=== PATIENT | female | born 1975 | race Caucasian/White ===

== ENCOUNTER 2024-08-02 12:18 | Emergency (ER) | payer OTHER, SELFPAY ==
[2024-08-02 12:26] VITALS: BP 104/74; PULSE 78; RESP 16; TEMP 36.6; O2SAT 100
--- OUTSIDE RECORDS SUMMARY | 2024-08-02 12:26 | XMS_ITS | Clinical Summary ---
Author Organization [facility] Address [address] [place] [address] Care Team Providers Care Strategic Partnership Representative Name Role Phone Alf Marie MD Primary Care Provider Nahed Mckay DPM Unavailable [phone] Aida Medina MD Unavailable Allergies Active Allergy Reactions Criticality Noted Date Comments Caffeine Hives Medium 12/01/2016 Codeine Other (See comments) Low 12/01/2016 Cyclobenzaprine Nausea only Low Venlafaxine Hives Medium 01/09/2023 Gabapentin Hives Medium Naproxen Hives Medium 12/01/2016 Oljzblru-Kamhiseufe-Pyewql kimberly Nausea & Vomiting Low Stomach pains Omeprazole Hives Medium 01/09/2023 Sulfamethoxazole-Trimethop rim Nausea & Vomiting Low Acetaminophen Chest tightness Medium 03/28/2022 Medications hydrOXYzine (VISTARIL) 25 mg capsule Take 1 capsule (25 mg total) by mouth 3 (three) times a day as needed 09/04/19 21 Active traZODone (DESYREL) 50 mg tablet Take 1 tablet (50 mg total) by mouth nightly as needed 09/04/19 21 Active ergocalciferol (VITAMIN D) 50,000 unit capsule Take 1 capsule (50,000 Units total) by mouth once a week 07/01/19 23 Active baclofen (LIORESAL) 10 mg tablet 07/01/19 23 Active dicyclomine (BENTYL) 20 mg tablet Take 1 tablet (20 mg total) by mouth 2 (two) times a day 20 tablet 09/18/19 23 Active polyethylene glycol (MIRALAX) 17 gram packet Take 1 packet (17 g total) by mouth daily 30 packet 09/18/19 23 Active hydrocortisone 2.5 % cream Apply topically 2 (two) times a day 30 g 12/04/19 23 Active rosuvastatin (CRESTOR) 10 mg tablet Take 1 tablet (10 mg total) by mouth daily 06/22/19 24 Active zonisamide (ZONEGRAN) 100 mg capsule TAKE FOUR (4) CAPSULES (400 MG TOTAL) BY MOUTH NIGHTLY 120 capsule 11 07/13/19 24 Active citalopram (CeleXA) 40 mg tablet 09/04/19 24 Active FeroSuL 325 mg (65 mg iron) tablet 08/22/19 24 Active lidocaine (XYLOCAINE) 5 % ointment 07/13/[address] (PROTONIX) 20 mg EC tablet 08/22/19 24 Active busPIRone (BUSPAR) 15 mg tablet 09/04/19 24 Active promethazine-D M (PROMETHAZINE- DM) 1.25-3 mg/mL syrup 06/19/19 24 Active ondansetron (ZOFRAN) 8 mg tablet 08/22/19 24 Active topiramate 200 mg capsule,extend ed release 24hr Take 1 capsule (200 mg total) by mouth 2 (two) times a day 60 capsule 3 03/21/20 24 Active midazolam (Nayzilam) 5 mg/spray (0.1 mL) spray,non-aero luis spray units ADMINISTER 1 SPRAY INTO 1 NOSTRIL WA BREAKTHROUGH SEIZURES USE ALTERNATIVE NOSTRIL IF 2ND SPRAY IS NEEDED 10 each 3 04/21/19 25 Active carBAMazepine (TEGretol) 100 mg chewable tablet TAKE THREE (3) TABLETS (300 MG TOTAL) BY MOUTH TWO (2) (TWO) TIMES a DAY WITH LUNCH AND DINNER 180 tablet 3 07/04/19 25 Active rimegepant (NURTEC ODT) tablet,disinte grating Take 1 tablet (75 mg total) by mouth as needed (As needed for Migraine) 10 tablet 07/11/19 25 Active SUMAtriptan (IMITREX) 100 mg tablet TAKE 1 TABLET (100 MG TOTAL) BY MOUTH ONCE NEEDED FOR MIGRAINE 9 tablet 5 05/07/19 25 025 Discontinued Hospital, Clinic, or Other Facility Administered Medication Ordered Dose Route Frequency Start Date End Date Status onabotulinumtoxin A (BOTOX) 200 unit injection 200 UnitsIndications:Chronic migraine without aura without status migrainosus, not intractable 200 Units OTHER Once 07/10/2024 07/10/2024 Ended Active Problems Problem Noted Date Diagnosed Date VENITA (obstructive sleep apnea) 07/19/2023 Right leg numbness 06/09/2023 Normocytic anemia 06/09/2023 Weakness 06/09/2023 Migraine 06/09/2023 Headache 06/09/2023 Difficult intravenous access 06/09/2023 Transient ischemic attack (TIA) 06/09/2023 Seizures 05/31/2023 Partial paralysis of left hand 05/31/2023 Overview (05/31/2023): l leg and l arm weakness/ patient reported paralysis since Anemia due to folic acid deficiency 05/31/2023 Insomnia 05/31/2023 Acute viral syndrome 04/01/2023 Upper respiratory tract infection 04/01/2023 Urticaria 11/11/2022 Acquired external rotation of foot, right 2022 Plantar fascial fibromatosis 08/29/2022 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 The she is Elavil BuSpar Lexapro. Will continue home antidepressants. Will start on suicide precautions. The will consult the psychiatric and school social worker for discharge planning. The due to severety of the symptoms patient would benefit from inpatient psychiatric stabilization after medically cleared. Vertigo 04/28/2019 Chin laceration 08/29/2017 Immunization, tetanus-diphtheria 08/29/2017 Pain of foot 08/24/2015 Seizure disorder 04/26/2015 Overview (07/13/2016): Seizure disorder Assessment & Plan (08/28/2020 11:31 PM CDT): Continue Tegretol Ativan p.r.n. for breakthrough seizure. Partial epilepsy with impairment of consciousnes s 02/19/2015 Overview (07/13/2016): Partial symptomatic epilepsy with complex partial seizures, intractable, without status epilepticus Common migraine with intractable migraine 2014 Overview (07/13/2016): Intractable chronic migraine without aura and without status migrainosus Pain in female pelvis 07/03/2014 Mass of breast 03/18/2014 Cerebral palsy 10/27/2011 Assessment & Plan (08/28/2020 11:30 PM CDT): At baseline. Continue monitoring 09/19/2011 Resolved Problems Problem Noted Date Diagnosed Date Resolved Date Acute cystitis without hematuria 05/31/2023 05/31/2023 BENITEZ (acute kidney injury) 08/28/2020 Assessment & Plan (08/28/2020 11:33 PM CDT): Acute renal failure likely secondary to nephrotoxicity due to NSAIDs. Will continue IV fluids, monitoring closely. Repeat BMP in a.m.. Monitor strict I&Os. Telemetry monitoring. Symptomatic treatment for nausea with Zofran p.r.n.. Encounters Date Type Department Care Team Description 07/10/2024 11:00 AM CDT Procedure visit [facility] [address] [facility] [address] [place] [address] Aida Medina MD Chronic migraine without aura without status migrainosus, not intractable 07/10/2024 Telephone [facility] [address] [facility] [address] [place] [address] Bharati Gil MA 06/25/2024 Telephone [facility] [address] [place] [address] Jenelle Conway 06/17/2024 Telephone [facility] [address] [place] [address] [address] [place] [address] Aida Medina MD 06/09/2024 Orders Only [facility] [address] [place] [address] [address] [place] [address] Aida Medina MD Chronic migraine without aura without status migrainosus, not intractable (Primary Dx) 05/26/2024 Telephone [facility] at [address] [place] [address] Michelle Hurst CMA 05/26/2024 Results Follow-Up [facility] [address] [place] [address] Dylan Newton 05/23/2024 12:35 PM ELECTRIC METER REPAIRER APPRENTICE Lab [facility] [address] [place] [address] Partial epilepsy with impairment of consciousness (HCC); Chronic migraine without aura without status migrainosus, not intractable 05/23/2024 11:30 AM ELECTRIC METER REPAIRER APPRENTICE Office Visit [facility] [address] [place] [address] [address] [place] [address] Aida Medina MD Partial epilepsy with impairment of consciousness (HCC) (Primary Dx); Chronic migraine without aura without status migrainosus, not intractable; VENITA (obstructive sleep apnea) from Last 3 Months Immunizations Immunization Administration Dates Next Due Influenza, Quadrivalent, Spl it, Preservative Free, Intramuscular 06/02/2023 Tdap 08/29/2017 Surgical History Surgery Date Site/Laterality Comments TUBAL LIGATION tubal ligation VAGUS NERVE STIMULATOR INSERTION Left battery replaced in Feb 2020 Medical History Medical History Date Comments Hx Other Medical Headache, migra ine Seizure disorder (HCC) Seizure d isorder Hx Other Medical Thromboembolic Event Migraine Sleep apnea Heart murmur Transient paralysis of limb l le g and l arm weakness/ patient reported paralysis since Family History Medical History Relation Name Comments Glaucoma Father Hypertension Father Hypertension; Bladder Cancer Mother Cancer Mother Diabetes type II Mother Diabetes me llitus type 2; Headache Mother Headaches; Brain cancer Mother's Sister Lung cancer Mother's Sister Hypertension Other Hypertension; Heart disease Paternal Grandmother Relation Name Status Comments Father Mother Mother's Sister Other Paternal Grandmother Social History Tobacco Use Types Packs/Day Years Used Date Smoking Tobacco: Never Passive Smoke Exposure: Never Smokeless Tobacco: Never Tobacco Cessation:Counseling Given: Not Answered Alcohol Use Standard Drinks/Week Comments No 0 (1 standard drink = 0.6 oz pur e alcohol) [facility] Utilities Answer Date Recorded In the past 12 months has th e electric, gas, oil, or water company threatened to shut off services in your home? No 06/11/2023 Social Connection and Isolat ion Panel [NHANES] Answer Date Recorded In a typical week, how many times do you talk on the phone with family, friends, or neighbors? More than three times a week 06/11/2023 How often do you get togethe r with friends or relatives? More than three times a week 06/11/2023 How often do you attend chur ch or religion services? Never 06/11/2023 Do you belong to any clubs o r organizations such as religious groups, unions, fraternal or athletic groups, or school groups? No 06/11/2023 How often do you attend meet ings of the clubs or organizations you belong to? Never 06/11/2023 Are you , , di vorced, , never , or living with a partner? 06/11/2023 AUDIT-C Answer Date Recorded Frequency of Alcohol Consumption Not on file 09/15/2022 Q2: How many drinks containi ng alcohol do you have on a typical day when you are drinking? Patient does not drink Frequency of Binge Drinking Not on file 12/2022 Overall Financial Resource Strain (CARDIA) Answe r Date Recorded How hard is it for you to pa y for the very basics like food, housing, medical care, and heating? Not hard at all 06/11/2023 PHQ-2 Answer Date Recorded PHQ-2 Total Score (If total score is 3 or more points, staff should administer the PHQ-9) 4 08/30/2020 Hunger Vital Sign Answer Date Recorded Within the past 12 months, y ou worried that your food would run out before you got the money to buy more. Never true 06/11/19 24 Within the past 12 months, t he food you bought just didn't last and you didn't have money to get more. Never true 06/11/2023 PRAPARE - Transportation Answer Date Re corded In the past 12 months, has l ack of transportation kept you from medical appointments or from getting medications? No 07/2023 In the past 12 months, has l ack of transportation kept you from meetings, work, or from getting things needed for daily living? No 06/11/2023 Housing Stability Vital Sign Answer Bao e Recorded In the last 12 months, was t here a time when you were not able to pay the mortgage or rent on time? No 06/11/2023 In the last 12 months, how many places have you lived? 1 06/11/2023 In the last 12 months, was t here a time when you did not have a steady place to sleep or slept in a mcfp (including now)? No 06/11/2023 Personal Safety Answer Date Recorded Have you ever been in or are you currently in a harmful physical or emotional relationship or is someone making you feel afraid or unsafe? Denies 06/09/2023 Comments No Sex and Gender Information Value Date Recorded Sex Assigned at Not on file Legal Sex Female 3:21 AM ELECTRIC METER REPAIRER APPRENTICE Gender Identity Not on file Sexual Orientation Not on file Obstetrics History Last Filed Vital Signs Vital Sign Reading Time Taken Comments Blood Pressure 106/71 07/10/2024 10:40 AM CDT Pulse 67 07/10/2024 10:40 AM CDT Temperature 36.2 C (97.1 F) 06/12/2023 7:42 AM ELECTRIC METER REPAIRER APPRENTICE Respiratory Rate 18 12/17/2023 11:31 AM CDT Oxygen Saturation 97% 07/10/2024 10:40 AM CDT Inhaled Oxygen Concentration - - Weight 47.2 kg (104 lb) 07/10/2024 10:40 AM CDT Height 149.9 cm (4' 11.02 ) 07/10/2024 10:40 AM CDT Body Mass Index 20.99 07/10/2024 10:40 AM CDT Plan of Treatment Health Maintenance Due Date Last Done Comments Cervical Cancer Screening 1975 Colon Cancer Screening-Colonoscopy 1975 Hepatitis C Screening 1975 Hepatitis B Screening 10/02/1993 Regular Well Visit/Exam 18-64 10/02/1993 Breast Cancer Screening-Mammogram 05/11/2017 05/11/2016, 04/21/2015, 08/29/2013 Depression Screening 08/28/2021 08/28/2020, 04/27/19 20 DTaP/Tdap/Td Vaccine (2 - Td or Tdap) 08/30/2027 08/29/2017 Pneumococcal vaccine <65 Aged Out 03/02/2017 No longer eligible based on patient's age to complete this topic Influenza Vaccine Completed 12/24/2023, , 01/12/2022, Additional history exists Medical Devices Implanted Type Area Pneumatic Tool Repairer Device Identifier Shelf Expiration Date Model / Serial / Lot Vagus Nerve Stimulator Vagus Nerve Stimulator Left: Chest Description:cyberonics brand Procedures Procedure Name Priority Date/Time Associated Diagnosis Comments EGFR Routine 05/23/2024 1:02 PM ELECTRIC METER REPAIRER APPRENTICE Partial epilepsy with impairment of consciousness (HCC) Chronic migraine without aura without status migrainosus, not intractable DIFFERENTIAL AUTO Routine 05/23/2024 1:0 2 PM ELECTRIC METER REPAIRER APPRENTICE Partial epilepsy with impairment of consciousness (HCC) Chronic migraine without aura without status migrainosus, not intractable CBC WITH AUTO DIFFERENTIAL Routine 05/23/2024 1:02 PM ELECTRIC METER REPAIRER APPRENTICE Partial epilepsy with impairment of consciousness (HCC) Chronic migraine without aura without status migrainosus, not intractable COMPREHENSIVE METABOLIC PANEL Routine 05/23/2024 1:02 PM ELECTRIC METER REPAIRER APPRENTICE Partial epilepsy with impairment of consciousness (HCC) Chronic migraine without aura without status migrainosus, not intractable CARBAMAZEPINE LEVEL, TOTAL Routine 05/23/2024 1:02 PM ELECTRIC METER REPAIRER APPRENTICE Partial epilepsy with impairment of consciousness (HCC) Chronic migraine without aura without status migrainosus, not intractable BLOOD MISC TO PLEASANT GROVE Routine 05/23/2024 12 :41 PM ELECTRIC METER REPAIRER APPRENTICE URINALYSIS, MICROSCOPIC ONLY Routine 05/23/2024 12:41 PM ELECTRIC METER REPAIRER APPRENTICE Partial epilepsy with impairment of consciousness (HCC) Chronic migraine without aura without status migrainosus, not intractable TOPIRAMATE LEVEL Routine 05/23/2024 12:4 1 PM ELECTRIC METER REPAIRER APPRENTICE Partial epilepsy with impairment of consciousness (HCC) Chronic migraine without aura without status migrainosus, not intractable URINE CULTURE Routine 05/23/2024 12:41 PM ELECTRIC METER REPAIRER APPRENTICE URINALYSIS AND REFLEX TO MICROSCOPIC AND CULTURE Routine 05/23/2024 12:41 PM ELECTRIC METER REPAIRER APPRENTICE Partial epilepsy with impairment of consciousness (HCC) Chronic migraine without aura without status migrainosus, not intractable SCREENING MAMMOGRAM Routine 05/11/2016 1 :46 PM ELECTRIC METER REPAIRER APPRENTICE from Last 3 Months or Most Recently Relevant to Health Maintenance Results * eGFR (05/23/2024 1:02 PM ELECTRIC METER REPAIRER APPRENTICE) eGFR >90 >=60 mL/min/1. 73 m2 Comment: Interpretive Data Reference Interval Normal >/= 90 mL/min/1.73m2 Mildly decreased* 60 - 89 mL/min/1.73m2 Mildly to moderately decreased 45 - 59 mL/min/1.73m2 Moderately to severely decreased 30 - 44 mL/min/1.73m2 Severely decreased 15 - 29 mL/min/1.73m2 Kidney Failure < 15 mL/min/1.73m2 *Relative to young adult level Estimated glomerular filtration rate is determined by the 2020 CKD-EPI equation recommended by the National Kidney Foundation (A Unifying Approach to GFR Estimation: Recommendations of the NKF-ASK Task Force on Reassessing the Inclusion of Race in Diagnosing Kidney Disease, JASN 2020). The CKD-EPI equation should not be used for patients with unstable renal function and has not been validated in children and those over 70. Current interpretive data was last reviewed 2021. Blood 05/23/2024 1:02 PM ELECTRIC METER REPAIRER APPRENTICE 05/23/2024 2:00 PM ELECTRIC METER REPAIRER APPRENTICE us Aida Medina MD LAB BLOOD ORDERABLES Final Resul t [facility] [place] [address] [facility] Department [place] [address] * Differential, auto (05/23/2024 1:02 PM ELECTRIC METER REPAIRER APPRENTICE) Neutrophil abs 4.1 1.5 - 6.5 K/cumm Imm gran abs 0.0 0.0 - 0.1 K/cumm [facility] ([facility]) Lymphocyte abs 1.8 0.8 - 3.3 K/cumm [facility] ([facility]) Monocyte abs 0.3 0.2 - 0.8 K/cumm [facility] ([facility]) Eosinophil abs 0.0 0.0 - 0.5 K/cumm [facility] ([facility]) Basophil abs 0.0 0.0 - 0.1 K/cumm [facility] ([facility]) Neutrophil pct 66.1 % [facility] ([facility]) Comment: Interpretive Data Percent cell count reference ranges are not reported, since discordance with absolute values may lead to misinterpretation of CBC data. Current Interpretive Data was last revised on 2017. Imm gran pct 0.2 % [facility] ([facility]) Comment: Interpretive Data Percent cell count reference ranges are not reported, since discordance with absolute values may lead to misinterpretation of CBC data. Current Interpretive Data was last revised on 2017. Lymphocyte pct 28.8 % [facility] ([facility]) Comment: Interpretive Data Percent cell count reference ranges are not reported, since discordance with absolute values may lead to misinterpretation of CBC data. Current Interpretive Data was last revised on 2017. Monocyte pct 4.7 % [facility] ([facility]) Comment: Interpretive Data Percent cell count reference ranges are not reported, since discordance with absolute values may lead to misinterpretation of CBC data. Current Interpretive Data was last revised on 2017. Eosinophil pct 0.0 % [facility] ([facility]) Comment: Interpretive Data Percent cell count reference ranges are not reported, since discordance with absolute values may lead to misinterpretation of CBC data. Current Interpretive Data was last revised on 2017. Basophil pct 0.2 % [facility] ([facility]) Comment: Interpretive Data Percent cell count reference ranges are not reported, since discordance with absolute values may lead to misinterpretation of CBC data. Current Interpretive Data was last revised on 2017. Blood 05/23/2024 1:02 PM ELECTRIC METER REPAIRER APPRENTICE 05/23/2024 2:00 PM ELECTRIC METER REPAIRER APPRENTICE Aida Medina MD LAB BLOOD ORDERABLES Final Resul t [facility] ([facility]) [address] [facility] Department [place] [address] * (ABNORMAL) CBC with auto differential (05/23/2024 1:02 PM ELECTRIC METER REPAIRER APPRENTICE) WBC 6.1 3.8 - 9.9 K/cumm Hgb 13.9 11.9 - 15.5 g/dL [facility] ([place]) Hct 44.1 35.6 - 45.5 % [facility] ([place]) Plt 252 150 - 400 K/cumm [facility] ([place]) MPV 10.4 9.1 - 12.3 fL [facility] ([place]) RBC 4.46 3.90 - 5.20 M/cumm [facility] ([place]) MCV 98.9(H) 81.3 - 96.4 fL [facility] ([place]) MCH 31.2 27.1 - 33.3 pg [facility] ([place]) MCHC 31.5(L) 32.3 - 35.7 g/dL [facility] ([place]) RDW CV 12.8 11.1 - 14.9 % [facility] ([facility]) RDW SD 47.1 35.7 - 48.1 fL [facility] ([facility]) NRBC abs 0.00 0.00 - 0.01 K/cumm [facility] ([facility]) Blood 05/23/2024 1:02 PM ELECTRIC METER REPAIRER APPRENTICE 05/23/2024 2:00 PM ELECTRIC METER REPAIRER APPRENTICE Aida Medina MD LAB BLOOD ORDERABLES Final Resul t [facility] ([facility]) [address] [facility] Department [place] [address] * Carbamazepine level, total (05/23/2024 1:02 PM ELECTRIC METER REPAIRER APPRENTICE) Carbamazepine 6.8 4.0 - 12.0 mcg/mL Comment: Interpretive Data Therapeutic or Toxic effect of anticonvulsant drugs may occur at different concentrations in different patients and the correlation between dose and clinical effect must be evaluated individually. Current interpretive data was last revised on 13. Testing performed by: [facility], [address] [facility], [place]., [address] Blood 05/23/2024 1:02 PM ELECTRIC METER REPAIRER APPRENTICE 05/23/2024 6:32 PM ELECTRIC METER REPAIRER APPRENTICE us Aida Medina MD LAB BLOOD ORDERABLES Final Resul t [facility] ([facility] [address] [facility] Department [place] [address] * (ABNORMAL) Comprehensive metabolic panel (05/23/2024 1:02 PM ELECTRIC METER REPAIRER APPRENTICE) Sodium 141 135 - 145 mmol/L Potassium, pl 3.8 3.3 - 4.9 mmol/L [facility] ([facility]) Chloride 109 97 - 110 mmol/L [facility] ([facility]) CO2 20(L) 22 - 32 mmol/L [facility] ([facility]) Anion gap 12 2 - 15 mmol/L [facility] ([facility]) BUN 16 6 - 25 mg/dL [facility] ([facility]) Creatinine 0.66 0.60 - 1.10 mg/dL [facility] ([facility]) Glucose 126 70 - 199 mg/dL [facility] ([facility]) Comment: Interpretive Data Fasting glucose >/= 126 mg/dl is diagnostic for diabetes. Fasting is defined as no caloric intake for at least 8 hours. Fasting glucose between 100 mg/dl to 125 mg/dl is diagnostic of prediabetes. In a patient with classic symptoms of hyperglycemia or hyperglycemic crisis, a random glucose >/= 200 mg/dl is diagnostic for diabetes. In the absence of unequivocal hyperglycemia, results should be confirmed by repeat testing. The classification and Diagnosis of Diabetes Diabetes Care 202; 46: S19-S40. Current interpretive data was last revised 2022. Calcium 9.1 8.5 - 10.3 mg/dL [facility] ([facility]) Bilirubin, total <0.2 0.1 - 1.2 mg/dL [facility] ([facility]) Protein, pl 7.3 6.5 - 8.5 g/dL [facility] ([place]) Albumin 4.3 3.5 - 5.0 g/dL [facility] ([facility]) Alk phos 88 40 - 130 Units/L [facility] ([facility]) ALT 10 7 - 45 Units/L [facility] ([facility]) AST 12 10 - 45 Units/L [facility] ([facility]) Comment:Slightly Hemolyzed S pecimen Blood 05/23/2024 1:02 PM ELECTRIC METER REPAIRER APPRENTICE 05/23/2024 2:00 PM ELECTRIC METER REPAIRER APPRENTICE us Aida Medina MD LAB BLOOD ORDERABLES Final Resul t [facility] ([facility]) [address] [facility] Department of [employer] [place], [place] [id number] * BLOOD MISC TO PLEASANT [place]OVE (05/23/2024 12:41 PM ELECTRIC METER REPAIRER APPRENTICE) Test name, chem KRISTENI Hipolitomide, S [place] ref Lab Misc See Comment [facility] ([place]) Comment: Test Result Flag Unit RefValue Zonisamide, S 21 mcg/mL 10-40 ADDITIONAL INFORMATION This test was developed and its performance characteristics determined by [facility] in a manner consistent with CLIA requirements. This test has not been cleared or approved by the U.S. Food and Drug Administration. Test Performed by: [facility] - [address] [address] Chief Dog License Inspector: Bryce Solorio Ph.D.; CLIA# [id number] Blood 05/23/2024 12:4 1 PM ELECTRIC METER REPAIRER APPRENTICE 05/23/2024 2:53 PM ELECTRIC METER REPAIRER APPRENTICE Aida Medina MD LAB BLOOD ORDERABLES Final Resul t [facility] ([place]) [address] [facility] Department [place] [address] [place] ref Lab * (ABNORMAL) Urinalysis reflex to microscopic and culture Urine (05/23/2024 12:41 PM ELECTRIC METER REPAIRER APPRENTICE) Color, ur Yellow Yellow Clarity, ur Turbid(A) Clear [facility] ([facility]) Specific gravity, ur 1.024 1.003 - 1.030 [facility] ([facility]) pH, urine 5.5 [facility] ([facility]) Comment: Interpretive Data U rine pH is affected by diet, medications, systemic acid-base disturbances, and renal tubular function. pH may affect urinary stone formation. For example, urine pH below 6.0 may help reduce the tendency for calcium phosphate stones and pH greater than 6.0 may reduce the tendency for uric acid stone formation. Source: [facility] Current Interpretive Data was last revised on 2017 Protein, ur ql 1+(A) Negative [facility] ([facility]) Glucose, ur ql Negative Negative [facility] (MONO) Ketones, ur Negative Negative [facility] (MONO) Bilirubin, ur Negative Negative [facility] (MONO) Blood, ur Trace(A) Negative [facility] (MONO) Urobilinogen, ur <2.0 <2.0 mg/dL [facility] (MONO) Nitrite, ur Negative Negative [facility] (MONO) Leukocyte esterase, ur 4+(A) Negative [facility] (MONO) UA reflex comment Reflex to microscopic UA will be performed. [facility] (MONO) Urine 05/23/2024 12:4 1 PM ELECTRIC METER REPAIRER APPRENTICE 05/23/2024 1:55 PM ELECTRIC METER REPAIRER APPRENTICE Aida Medina MD LAB MICROBIOLOGY - GENERAL ORDER TERESA Final Result ROSIE MOURA (MONO) 1 [facility] Department [place] [address] * Topiramate level (05/23/2024 12:41 PM ELECTRIC METER REPAIRER APPRENTICE) Pathologist [facility] Topiramate (Topamax) 11.4 mcg/mL [facility] Comment: REFERENCE VALUE Reference values depend on clinical use: Anticonvulsant: 5.0-20.0 mcg/mL ADDITIONAL INFORMATION This test was developed and its performance characteristics determined by [facility] in a manner consistent with CLIA requirements. This test has not been cleared or approved by the U.S. Food and Drug Administration. Test Performed by: [facility] [place] [address] Chief Dog License Inspector: Bryce Solorio Ph.D.; CLIA# [id number] Blood 05/23/2024 12:4 1 PM ELECTRIC METER REPAIRER APPRENTICE 05/23/2024 2:00 PM ELECTRIC METER REPAIRER APPRENTICE us Aida Medina MD LAB BLOOD ORDERABLES Final Resul t ROSIE VALENZUELA) 1 [facility] Department of [employer] [place] [address] [facility] * (ABNORMAL) Urinalysis, microscopic only (05/23/2024 12:41 PM ELECTRIC METER REPAIRER APPRENTICE) WBC, ur >50(A) 0 - 5 /HPF RBC, ur 6-10(A) 0 - 2 /HPF [facility] (MONO) Epithelial cells, squamous, ur 6-10(A) 0 - 5 /HPF [facility] (MONO) Bacteria, ur Trace(A) ROSIE [facility] ([place]) Mucous, ur Present(A) CERNER A ([place]) Culture Reflex Comment Reflex to urine culture will be performed. [facility] ([place]) Urine 05/23/2024 12:4 1 PM ELECTRIC METER REPAIRER APPRENTICE 05/23/2024 1:55 PM ELECTRIC METER REPAIRER APPRENTICE Aida Medina MD LAB URINE ORDERABLES Final Resul t Performing Organization Address City/[facility] Co de Phone Number ROSIE MOURA (MONO) 1 [facility] [place] [address] * Urine culture Urine (05/23/2024 12:41 PM ELECTRIC METER REPAIRER APPRENTICE) Report Final Report: Less than 100,000 colonies/mL (clinically insignificant growth based on current clinical standards) Comment:Testing performed by : [facility], [address] [place]., [address] Organism (CLINICALLY INSIGNIFICANT GROWTH ROSIE MOURA (MONO) Urine 05/23/2024 12:4 1 PM ELECTRIC METER REPAIRER APPRENTICE 05/23/2024 6:46 PM ELECTRIC METER REPAIRER APPRENTICE Narrative ROSIE MOURA (MONO) - 05/24/2024 8:37 PM ELECTRIC METER REPAIRER APPRENTICE Urine culture reflexed based upon urinalysis results. Testing performed by [facility] Microbiology Laboratory ([phone]) Aida Medina MD LAB MICROBIOLOGY - GENERAL ORDER TERESA Final Result Performing Organization Address [facility] Co de Phone Number ROSIE MOURA (MONO) 1 [facility] of [employer] [place] [address] * Screening Mammogram (05/11/2016 1:46 PM ELECTRIC METER REPAIRER APPRENTICE) Anatomical Region Laterality Modality Breast N/A Mammography 05/11/2016 1:46 PM ELECTRIC METER REPAIRER APPRENTICE Narrative 05/15/2016 2:57 PM ELECTRIC METER REPAIRER APPRENTICE ASHVIN ARCE M.D. FINAL REPORT ACC# Date Time Exam [id number] May 11, 2016 13:46:00 [facility] [id number] Scr Mamm tracy 2v w/MICHAEL Technologist(s): Marlyn Garcia; ; EXAMINATION: Mammogram Technique: Bilateral Digital Breast Tomosynthesis, Bilateral C-view 2D Screening mammogram. Views obtained: bilateral craniocaudal and bilateral mediolateral oblique. Computer Aided Detection was performed. Mammogram Findings: The present examination has been compared to a prior imaging study performed at [facility] on 04/21/2015. The breasts are heterogeneously dense, which may obscure small masses. There is no suspicious abnormality in either breast. IMPRESSION: Annual screening mammography is recommended. OVERALL FINAL ASSESSMENT: BI-RADS CATEGORY 1: Negative. Requested By: Referral,Self Dictated By: ASHVIN ARCE M.D. on May 15 2016 2:57P This document has been electronically signed by: ASHVIN ARCE M.D. on May 15 2016 2:57P [id number] Procedure Note Provider, MD Karin - 08/16/2016 ASHVIN ARCE M.D. FINAL REPORT ACC# Date Time Exam [id number] May 11, 2016 13:46:00 [facility] [id number] Scr Mamm tracy 2v w/MICHAEL Technologist(s): Marlyn Garcia; ; EXAMINATION: Mammogram Technique: Bilateral Digital Breast Tomosynthesis, Bilateral C-view 2D Screening mammogram. Views obtained: bilateral craniocaudal and bilateral mediolateral oblique. Computer Aided Detection was performed. Mammogram Findings: The present examination has been compared to a prior imaging study performed at [facility] on 04/21/2015. The breasts are heterogeneously dense, which may obscure small masses. There is no suspicious abnormality in either breast. IMPRESSION: Annual screening mammography is recommended. OVERALL FINAL ASSESSMENT: BI-RADS CATEGORY 1: Negative. Requested By: Referral,Self Dictated By: ASHVIN ARCE M.D. on May 15 2016 2:57P This document has been electronically signed by: ASHVIN ARCE M.D. 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 ADVANCE DIRECTIVE 04/28/2019 2:20 PM Power of Corporate Buyer-Medical * Full Code (Latest Code Status on File) Date Activated Date Inactivated Comments 06/09/2023 12:33 PM 06/12/2023 4:56 PM * Full Code Date Activated Date Inactivated Comments 05/31/2023 8:14 PM 06/02/2023 7:05 PM * Full Code Date Activated Date Inactivated Comments 09/22/2022 2:11 PM 09/22/2022 7:40 PM * Full Code Date Activated Date Inactivated Comments 08/28/2020 10:11 PM 08/31/2020 11:33 PM * Full Code Date Activated Date Inactivated Comments 04/27/2019 9:16 PM 04/29/2019 7:20 PM Care Teams Strategic Partnership Representative Relationship Specialty Start Date End Date Alf Marie MD PCP - General 07/07/16 Nahed Mckay DPM [address] [place] [id number] Consulting Physician Foot and Ankle Surg 09/22/22 Aida Medina MD [address] [place] [address] [address] Consulting Physician Neurology 06/02/23
--- OUTSIDE RECORDS SUMMARY | 2024-08-02 12:26 | XMS_ITS | Clinical Summary ---
Author Organization [facility] Address [address] [place] [address] Phone Care Team Providers Care [employer] Former Name Role Phone Alf Marie MD Primary Care Provider [phone] Allergies Active Allergy Reactions Criticality Noted Date Comments Caffeine Other (see Comments) 12/01/2016 Codeine Other (see Comments) 12/01/2016 Cyclobenzaprine Other (see Comments) 12/01/2016 Levetiracetam Rash 12/03/2018 Medications busPIRone (BUSPAR) 15 MG Tablet Take by mouth. Active fluticasone (FLOVENT DISKUS) 50 MCG/BLIST AEROSOL POWDER, BREATH ACTIVATED take by inhalation. Active topiramate (TOPAMAX) 100 MG Tablet Take by mouth. Active zonisamide (ZONEGRAN) 100 MG Capsule Take by mouth. Active montelukast (SINGULAIR) 10 MG Tablet take 1 tablet by oral route every day in the evening 4 Active SUMAtriptan (IMITREX) 100 MG Tablet Take by mouth. 7 Active nitrofurantoin, macrocrystal-mon ohydrate, (MACROBID) 100 MG Capsule 7 Active sertraline (ZOLOFT) 100 MG Tablet 7 Active amitriptyline (ELAVIL) 50 MG Tablet Take 50 mg by mouth nightly. Active TiZANidine HCl 4 MG Capsule Take 4 mg by mouth 3 times daily. Active ondansetron (ZOFRAN-ODT) 4 MG TABLET DISPERSIBLE Take 1 Tab by mouth every 8 hours as needed for Nausea - 1st line. 10 Tab 9 Active RaNITIdine HCl 300 MG Capsule Take by mouth 2 times daily. Active hydrOXYzine (ATARAX) 25 MG Tablet Take 25 mg by mouth every 6 hours as needed. Active omeprazole (PRILOSEC) 20 MG CAPSULE DELAYED RELEASE Take 20 mg by mouth daily. Active propranolol (INDERAL) 20 MG Tablet Take 20 mg by mouth 3 times daily. Active Pseudoephedrine HCl (SUPHEDRIN PO) Take 30 mg by mouth 3 times daily. Active escitalopram (LEXAPRO) 20 MG Tablet Take 20 mg by mouth daily. Active carBAMazepine (TEGRETOL) 100 MG Chewable Tablet Take 4 Tabs by mouth 2 times daily (with meals). 720 Tab 3 9 Active LORazepam (ATIVAN) 1 MG Tablet Take 1 Tab by mouth daily as needed (seizures). 20 Tab 9 Active ketorolac (TORADOL) 10 MG Tablet Take 1 Tablet by mouth every 6 hours as needed for Moderate or more severe pain. 20 Tablet 3 Active metoclopramide (REGLAN) 10 MG Tablet Take 1 Tablet by mouth 4 times daily as needed for Other (Headache). 10 Tablet 3 Active Active Problems Problem Noted Date Diagnosed Date Orthostatic lightheadedness 12/28/2016 Tinnitus, bilateral 12/28/2016 Family History Medical History Relation Name Comments Hypertension Father Bladder cancer Mother Relation Name Status Comments Father Alive Mother Social History Tobacco Use Types Packs/Day Years Used Date Smoking Tobacco: Never Smokeless Tobacco: Never Alcohol Use Standard Drinks/Week Comments No 0 (1 standard drink = 0.6 oz pur e alcohol) Comments No Sex and Gender Information Value Date Recorded Sex Assigned at Not on file Legal Sex Female 11:05 PM CDT Gender Identity Not on file Sexual Orientation Not on file Occupation Industry Job Start Date Job End Date unemployed Not on file Not on file Not on file Last Filed Vital Signs Vital Sign Reading Time Taken Comments Blood Pressure 124/74 01/02/2023 3:16 PM CDT Pulse 78 01/02/2023 3:16 PM CDT Temperature 36.2 C (97.2 F) 01/02/2023 12:06 PM CDT Respiratory Rate 17 01/02/2023 3:16 PM CDT Oxygen Saturation 99% 01/02/2023 3:16 PM CDT Inhaled Oxygen Concentration - - Weight 50.2 kg (110 lb 10.7 oz) 023 12:06 PM CDT Height 149.9 cm (4' 11 ) 01/02/2023 12: 06 PM CDT Body Mass Index 22.35 01/02/2023 12:06 PM CDT Plan of Treatment Health Maintenance Due Date Last Done Comments Hepatitis C Virus (HCV) Screening 1975 Mammogram 1975 Hepatitis B Immunization (1 of 3 - 19+ 3-dose series) 10/02/1994 Pap Smear 10/02/1996 Cervical Cancer Screening (CCS) 10/02/2005 HPV/Cotest 10/02/2005 Discussion re Starting/Frequency of Mammograms 2015 Colonoscopy 10/02/2020 Colorectal Cancer Screening 10/02/2020 Influenza Immunization (#1) 12/09/202301/07, 01/09/2018, 01/22/2017, Additional history exists SARS-COV-2 Immunization ( season) 2023 04/22/2021, 08/04/2020, 07/07/2020 Respiratory Syncytial Virus (RSV) Immunization (Adult) (1 - 1-dose 75+ series) 10/02/2050 Pneumococcal Immunization Combined Aged Out 03/02/2017 No longer eligible based on patient's age to complete this topic DTaP/Tdap/Td Immunization Discontinued 08/29/2017 TdaP Immunization Completed 08/29/2017 Meningococcal Immunization (ACWY) Aged Out No longer eligible based on patient's age to complete this topic Rotavirus Immunization Aged Out No lo nger eligible based on patient's age to complete this topic Additional Health Concerns Infection Onset Date Last Indicated 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
--- OUTSIDE RECORDS SUMMARY | 2024-08-02 12:26 | XMS_ITS | Referral Summary ---
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 Name Role Phone Alf Marie MD Primary Care Provider [phone] Nahed Mckay DPM Unavailable [phone] Aida Medina MD Unavailable Encounters Date Type Department Care Team Description 07/10/2024 Telephone [facility] [address] [place] [address] [address] [place] [address] Bharati Gil MA 07/10/2024 11:00 AM CDT Procedure visit [facility] [address] [place] [address] [address] [place] [phone] Aida Medina MD Chronic migraine without aura without status migrainosus, not intractable 06/25/2024 Telephone [facility] [address] [place] [address] Jenelle Conway 06/17/2024 Telephone [facility] [address] [place] [address] [address] [place] [phone] Aida Medina MD 06/09/2024 Orders Only [facility] [address] [place] [address] [address] [place] [phone] Aida Medina MD Chronic migraine without aura without status migrainosus, not intractable (Primary Dx) 05/26/2024 Telephone [facility] at [address] [place] [phone] Michelle Hurst CMA 05/26/2024 Results Follow-Up [facility] [address] [place] [address] [address] [place] [phone] Dylan Newton 05/23/2024 12:35 PM CABINETMAKER MAINTENANCE Lab [facility] [address] [place] [address] Partial epilepsy with impairment of consciousness (HCC); Chronic migraine without aura without status migrainosus, not intractable 05/23/2024 11:30 AM CABINETMAKER MAINTENANCE Office Visit [facility] [address] [place] [address] [address] [place] [phone] Aida Medina MD Partial epilepsy with impairment of consciousness (HCC) (Primary Dx); Chronic migraine without aura without status migrainosus, not intractable; VENITA (obstructive sleep apnea) from Last 3 Months Allergies Active Allergy Reactions Criticality Noted Date Comments Caffeine Hives Medium 12/01/2016 Codeine Other (See comments) Low 12/01/2016 Cyclobenzaprine Nausea only Low Venlafaxine Hives Medium 01/09/2023 Gabapentin Hives Medium Naproxen Hives Medium 12/01/2016 Ttxmbdrx-Irqyalowny-Wxwnoc kimberly Nausea & Vomiting Low Stomach pains [...] units ADMINISTER 1 SPRAY INTO 1 NOSTRIL OK BREAKTHROUGH SEIZURES USE ALTERNATIVE NOSTRIL IF 2ND [...] precautions. The will consult the psychiatric and social service assistant for discharge planning. The due to severety [...] Symptomatic treatment for nausea with Zofran p.r.n.. Immunizations Immunization Administration Dates Next Due Influenza, Quadrivalent, Spl it, Preservative Free, Intramuscular 06/02/2023 Tdap 08/29/2017 Social History Tobacco Use Types Packs/Day Years Used Date Smoking Tobacco: Never Passive Smoke Exposure: Never Smokeless Tobacco: Never Tobacco Cessation:Counseling Given: Not Answered Alcohol Use Standard Drinks/Week Comments No 0 (1 standard drink = 0.6 oz pur e alcohol) [facility] Utilities Answer Date Recorded In the past 12 months has Symptify, gas, oil, or water [employer] threatened to shut off services in your [...] often do you attend chur ch or shinto services? Never 06/11/2023 Do you belong to any clubs o r organizations such as gnosticism groups, unions, fraternal or athletic groups, or [...] place to sleep or slept in a detention (including now)? No 06/11/2023 Personal Safety Answer Date Recorded Have you ever been in or are you currently in a harmful physical or emotional relationship or is someone making you feel afraid or unsafe? Denies 06/09/2023 Comments No Sex and Gender Information Value Date Recorded Sex Assigned at Not on file Legal Sex Female 3:21 AM CABINETMAKER MAINTENANCE Gender Identity Not on file Sexual Orientation Not on file Last Filed Vital Signs Vital Sign Reading Time Taken Comments Blood Pressure 106/71 07/10/2024 10:40 AM CDT Pulse 67 07/10/2024 10:40 AM CDT Temperature 36.2 C (97.1 F) 06/12/2023 7:42 AM CABINETMAKER MAINTENANCE Respiratory Rate 18 12/17/2023 11:31 AM CDT Oxygen Saturation 97% 07/10/2024 10:40 AM CDT Inhaled Oxygen Concentration - - Weight 47.2 kg (104 lb) 07/10/2024 10:40 AM CDT Height 149.9 cm (4' 11.02 ) 07/10/2024 10:40 AM CDT Body Mass Index 20.99 07/10/2024 10:40 AM CDT Plan of Treatment Not on file Medical Devices Implanted Type Area Media Supervisor Device Identifier Shelf Expiration Date Model / Serial / Lot Vagus Nerve Stimulator Vagus Nerve Stimulator Left: Chest Description:Kynetxs brand Procedures Procedure Name Priority Date/Time Associated Diagnosis Comments EGFR Routine 05/23/2024 1:02 PM [employer]INET[employer] MAINTENANCE Partial epilepsy with impairment of consciousness (HCC) Chronic migraine without aura without status migrainosus, not intractable DIFFERENTIAL AUTO Routine 05/23/2024 1:0 2 PM [employer]INET[employer] MAINTENANCE Partial epilepsy with impairment of consciousness (HCC) Chronic migraine without aura without status migrainosus, not intractable CBC WITH AUTO DIFFERENTIAL Routine 05/23/2024 1:02 PM [employer] MAINTENANCE Partial epilepsy with impairment of consciousness (HCC) Chronic migraine without aura without status migrainosus, not intractable COMPREHENSIVE METABOLIC PANEL Routine 05/23/2024 1:02 PM [employer] MAINTENANCE Partial epilepsy with impairment of consciousness (HCC) Chronic migraine without aura without status migrainosus, not intractable CARBAMAZEPINE LEVEL, TOTAL Routine 05/23/2024 1:02 PM [employer] MAINTENANCE Partial epilepsy with impairment of consciousness (HCC) Chronic migraine without aura without status migrainosus, not intractable BLOOD MISC TO [place] Routine 05/23/2024 12 :41 PM CABINETMAKER MAINTENANCE URINALYSIS, MICROSCOPIC ONLY Routine 05/23/2024 12:41 PM CABINETMAKER MAINTENANCE Partial epilepsy with impairment of consciousness (HCC) Chronic migraine without aura without status migrainosus, not intractable TOPIRAMATE LEVEL Routine 05/23/2024 12:4 1 PM [employer]INET[employer]KER MAINTENANCE Partial epilepsy with impairment of consciousness (HCC) Chronic migraine without aura without status migrainosus, not intractable URINE CULTURE Routine 05/23/2024 12:41 PM CABINETMAKER MAINTENANCE URINALYSIS AND REFLEX TO MICROSCOPIC AND CULTURE Routine 05/23/2024 12:41 PM CABINETMAKER MAINTENANCE Partial epilepsy with impairment of consciousness (HCC) Chronic migraine without aura without status migrainosus, not intractable SCREENING MAMMOGRAM Routine 05/11/2016 1 :46 PM CABINETMAKER MAINTENANCE from Last 3 Months or Most Recently Relevant to Health Maintenance Results * eGFR (05/23/2024 1:02 PM CABINETMAKER MAINTENANCE) eGFR >90 >=60 mL/min/1. 73 m2 Comment: [...] last reviewed 2021. Blood 05/23/2024 1:02 PM CABINETMAKER MAINTENANCE 05/23/2024 2:00 PM CABINETMAKER MAINTENANCE us Aida Medina MD LAB BLOOD ORDERABLES Final Resul t [facility] ([place]) [facility] Department [place] [address] * Differential, auto (05/23/2024 1:02 PM CABINETMAKER MAINTENANCE) Neutrophil abs 4.1 1.5 - 6.5 K/cumm [...] 2017. Monocyte pct 4.7 % [facility] (OMNO) Comment: Interpretive Data Percent cell count reference [...] revised on 2017. Blood 05/23/2024 1:02 PM CABINETMAKER MAINTENANCE 05/23/2024 2:00 PM CABINETMAKER MAINTENANCE us Aida Medina MD LAB BLOOD ORDERABLES Final Resul t [facility] ([place]) [address] [facility] Department [place] [address] * (ABNORMAL) CBC with auto differential (05/23/2024 1:02 PM CABINETMAKER MAINTENANCE) WBC 6.1 3.8 - 9.9 K/cumm Hgb [...] RDW SD 47.1 35.7 - 48.1 fL [facility] ([place]) NRBC abs 0.00 0.00 - 0.01 K/cumm [facility] ([place]) Blood 05/23/2024 1:02 PM CABINETMAKER MAINTENANCE 05/23/2024 2:00 PM CABINETMAKER MAINTENANCE Aida Medina MD LAB BLOOD ORDERABLES Final Resul t Performing Organization Address City/[facility] Co de Phone Number [facility] ([place]) [address] [place] [address] * Carbamazepine level, total (05/23/2024 1:02 PM CABINETMAKER MAINTENANCE) Pathologist [facility] Carbamazepine 6.8 4.0 - 12.0 mcg/mL Comment: Interpretive Data Therapeutic or Toxic effect of anticonvulsant drugs may occur at different concentrations in different patients and the correlation between dose and clinical effect must be evaluated individually. Current interpretive data was last revised on 13. Testing performed by: [facility], [address] [facility] [place] [address] Blood 05/23/2024 1:02 PM CABINETMAKER MAINTENANCE 05/23/2024 6:32 PM CABINETMAKER MAINTENANCE Aida Medina MD LAB BLOOD ORDERABLES Final Resul t Performing Organization Address [facility] Co de Phone Number [facility] ([place]) 1 [facility] [place] [address] * (ABNORMAL) Comprehensive metabolic panel (05/23/2024 1:02 PM CABINETMAKER MAINTENANCE) Sodium 141 135 - 145 mmol/L Potassium, pl 3.8 3.3 - 4.9 mmol/L [facility] ([place]) Chloride 109 97 - 110 mmol/L [facility] ([place]) CO2 20(L) 22 - 32 mmol/L [facility] ([place]) Anion gap 12 2 - 15 mmol/L [facility] ([place]) BUN 16 6 - 25 mg/dL [facility] ([place]) Creatinine 0.66 0.60 - 1.10 [...] Hemolyzed S pecimen Blood 05/23/2024 1:02 PM CABINETMAKER MAINTENANCE 05/23/2024 2:00 PM CABINETMAKER MAINTENANCE us Aida Medina MD LAB BLOOD ORDERABLES Final Resul t [facility] ([place]) 1 [facility] Department [place] [address] * BLOOD MISC TO [place]A (05/23/2024 12:41 PM CABINETMAKER MAINTENANCE) Test name, Isabel Valenzuela [place] ref Lab Misc See Comment [facility] PINZON (ELMO) Comment: Test Result Flag Unit RefValue Zonisamide, S 21 mcg/mL 10-40 ADDITIONAL INFORMATION This test was developed and its performance characteristics determined by [facility] in a manner consistent with CLIA requirements. This test has not been cleared or approved by the U.S. Food and Drug Administration. Test Performed by: [facility] Laboratories - [facility] [address] [id number] Ramp Flight Attendant: Bryce Solorio Ph.D.; CLIA# [id number] Blood 05/23/2024 12:4 1 PM CABINETMAKER MAINTENANCE 05/23/2024 2:53 PM CABINETMAKER MAINTENANCE us Aida Medina MD LAB BLOOD ORDERABLES Final Resul t [facility] ([place]) 1 [facility] Department [place] [address] [place] ref Lab * (ABNORMAL) Urinalysis reflex to microscopic and culture Urine (05/23/2024 12:41 PM CABINETMAKER MAINTENANCE) Color, ur Yellow Yellow Clarity, ur Turbid(A) Clear [facility] ([place]) Specific gravity, ur 1.024 1.003 - 1.030 [facility] ([place]) pH, urine 5.5 [facility] ([place]) Comment: Interpretive Data U rine pH is affected by diet, medications, systemic acid-base disturbances, and renal tubular function. pH may affect urinary stone formation. For example, urine pH below 6.0 may help reduce the tendency for calcium phosphate stones and pH greater than 6.0 may reduce the tendency for uric acid stone formation. Source: [facility] Current Interpretive Data was last revised on [...] [facility] ([facility]) Urine 05/23/2024 12:4 1 PM CABINETMAKER MAINTENANCE 05/23/2024 1:55 PM CABINETMAKER MAINTENANCE Aida Medina MD LAB MICROBIOLOGY - GENERAL ORDER TERESA Final Result [facility] ([place]) 1 [facility] Department [place] [address] * Topiramate level (05/23/2024 12:41 PM CABINETMAKER MAINTENANCE) Pathologist [facility] Topiramate (Topamax) 11.4 mcg/mL [place] ref La b Comment: REFERENCE VALUE Reference values depend on clinical use: Anticonvulsant: 5.0-20.0 mcg/mL ADDITIONAL INFORMATION This test was developed and its performance characteristics determined by [facility] in a manner consistent with CLIA requirements. This test has not been cleared or approved by the U.S. Food and Drug Administration. Test Performed by: [facility] [place] [address] Ramp Flight Attendant: Bryce Solorio Ph.D.; CLIA# [id number] Blood 05/23/2024 12:4 1 PM CABINETMAKER MAINTENANCE 05/23/2024 2:00 PM CABINETMAKER MAINTENANCE Aida Medina MD LAB BLOOD ORDERABLES Final Resul t Performing Organization Address City/[facility]/ZIP Co de Phone Number [facility] ([place]) 1 [facility] Department [place] [address] [place] ref Lab * (ABNORMAL) Urinalysis, microscopic only (05/23/2024 12:41 PM CABINETMAKER MAINTENANCE) WBC, ur >50(A) 0 - 5 /HPF RBC, ur 6-10(A) 0 - 2 /HPF [facility] ([place]) Epithelial cells, squamous, ur 6-10(A) 0 - 5 /HPF [facility] ([place]) Bacteria, ur Trace(A) [facility] ([place]) Mucous, ur Present(A) [facility] A ([place]) Culture Reflex Comment Reflex to urine culture will be performed. ROSIE COUNT INCLUDES THE [facility] ([place]) Urine 05/23/2024 12:4 1 PM CABINETMAKER MAINTENANCE 05/23/2024 1:55 PM CABINETMAKER MAINTENANCE Aida Medina MD LAB URINE ORDERABLES Final Resul t Performing Organization Address [facility] Co de Phone Number ROSIE MOURA ([place]) 1 [facility] Department [place] [address] * Urine culture Urine (05/23/2024 12:41 PM CABINETMAKER MAINTENANCE) Report Final Report: Less than 100,000 colonies/mL (clinically insignificant growth based on current clinical standards) Comment:Testing performed by : [facility], [address] [place] [address] Organism (CLINICALLY INSIGNIFICANT GR[facility]TH [facility] Urine 05/23/2024 12:4 1 PM CABINETMAKER MAINTENANCE 05/23/2024 6:46 PM CABINETMAKER MAINTENANCE Narrative [facility] - 05/24/2024 8:37 PM CABINETMAKER MAINTENANCE Urine culture reflexed based upon urinalysis results. Testing performed by [facility] Laboratory ([phone]) Aida Medina MD LAB MICROBIOLOGY - GENERAL ORDER TERESA Final Result Performing Organization Address City/[facility]/ZIP Co de Phone Number ROSIE MOURA [place]) 1 [facility] Department [place] [address] * Screening Mammogram (05/11/2016 1:46 PM CABINETMAKER MAINTENANCE) Anatomical Region Laterality Modality Breast N/A Mammography 05/11/2016 1:46 PM CABINETMAKER MAINTENANCE Narrative 05/15/2016 2:57 PM CABINETMAKER MAINTENANCE ASHVIN ARCE M.D. FINAL REPORT ACC# Date Time Exam [id number] May 11, 2016 13:46:00 [facility] [id number] Scr Mamm tracy 2v w/MICHAEL Technologist(s): Marlyn Garcia; ; EXAMINATION: Mammogram Technique: Bilateral Digital Breast Tomosynthesis, Bilateral C-view 2D Screening mammogram. Views obtained: bilateral craniocaudal and bilateral mediolateral oblique. Computer Aided Detection was performed. Mammogram Findings: The present examination has been compared to a prior imaging study performed at [facility] on 04/21/2015. The breasts are heterogeneously dense, which may obscure small masses. There is no suspicious abnormality in either breast. IMPRESSION: Annual screening mammography is recommended. OVERALL FINAL ASSESSMENT: BI-RADS CATEGORY 1: Negative. Requested By: Referral,Self Dictated By: ASHVIN ARCE M.D. on May 15 2016 2:57P This document has been electronically signed by: ASHVIN ARCE M.D. on May 15 2016 2:57P [id number] Procedure Note Provider, MD Karin - 08/16/2016 ASHVIN ARCE M.D. FINAL REPORT ACC# Date Time Exam [id number] May 11, 2016 13:46:00 [facility] [id number] Scr Mamm tracy 2v w/MICHAEL Technologist(s): Marlyn Garcia; ; EXAMINATION: Mammogram Technique: Bilateral Digital Breast Tomosynthesis, Bilateral C-view 2D Screening mammogram. Views obtained: bilateral craniocaudal and bilateral mediolateral oblique. Computer Aided Detection was performed. Mammogram Findings: The present examination has been compared to a prior imaging study performed at [facility] on 04/21/2015. The breasts are heterogeneously dense, which may obscure small masses. There is no suspicious abnormality in either breast. IMPRESSION: Annual screening mammography is recommended. OVERALL FINAL ASSESSMENT: BI-RADS CATEGORY 1: Negative. Requested By: Referral,Self Dictated By: ASHVIN ARCE M.D. on May 15 2016 2:57P This document has been electronically signed by: ASHVIN ARCE M.D. 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
--- OUTSIDE RECORDS SUMMARY | 2024-08-02 12:26 | XMS_ITS | Data Portability ---
Author Organization [facility] Address [address] [facility] [place] [address] Care Team Providers Care Offal Trimmer Name Role Phone ALF MADDEN Primary Care Provider Assessment Encounter Date Assessment Date Assessment LastModified by Organization Details LastModified Time 12/20/2022 12/20/2022 Workup will proceed as below. Not available 12/24/2022 13:36:35 06/19/2023 06/19/2023 Pt was accompanied by her devoted father. She is stable and improving. [email or web address] Not available 06/21/2023 11:28:31 08/22/2023 08/22/2023 Pt was advised to stop ibuprofen.Pt was accompanied by her father. [email or web address] Not available 08/26/2023 06:41:48 12/24/2023 12/24/2023 Treatment will proceed as below. [email or web address] Not available 12/26/2023 07:17:37 Plan of Treatment Reminders Order Date Submit Date Provider Last Modified By Organization Details Last Modified Time Details Appointments ANY 15 2024 10:00A M Alf Madden MD Not available Not available Not available NEW PATIENT 30 2024 09:30A M Jenni Parry-Joelle [facility], [place] APPRENTICE-Bc Not available Not available Not available Lab lipid panel, serum 2023 024 [facility], [address] [place] [address], [address], 06/20/2023 10:13:52 CMP, serum or plasma 2023 024 [facility], [address] [facility], [place], [address], 06/20/2023 10:13:53 TSH, ultra-sen sitive, serum 2023 024 [facility], [address], [place], [address], 06/20/2023 13:12:27 respirato ry allergen panel - [facility] c 2022 023 [facility], [address] [facility], [address], [place], [address], 12/24/2022 19:07:50 food allergen panel, serum 2022 023 [facility], [address] [facility], [address], [place], [address], 12/24/2022 19:07:50 Referral gastroent erologist referral 2023 024 Pavel Velez, [address] [facility] , [address], [place], [address], 02/06/2024 15:08:39 gynecolog ist referral 2023 024 [email or web address] Jenni Hyatt APN, [address] [facility] , [address], [place], [address], 08/23/2023 14:58:14 Procedures None recorded. Surgeries None recorded. Imaging XR, knee, 3 view 2023 024 KERMAN [facility] Scheduling, [address] [facility] , [place], [address], 02/08/2024 12:31:57 Medication Orders baclofen 10 mg tablet 2023 024 [facility] [place], [address], [place], [address], 12/26/2023 07:19:01 rosuvasta tin 10 mg tablet 2023 024 [facility], [facility] [address], [place], [address], 12/26/2023 07:19:31 pantopraz ole 20 mg tablet,de layed release 2023 024 [place] [address], [place], [address], 12/26/2023 07:20:32 citalopra m 40 mg tablet 2023 024 [place] [address], [place], [address], 12/26/2023 07:19:01 hydroxyzi ne pamoate 50 mg capsule 2023 024 [place] [address], [place], [address], 12/26/2023 07:22:23 ondansetr on HCl 8 mg tablet [email or web address], [facility] [address], [place], [address], 12/26/2023 07:20:12 pantopraz ole 20 mg tablet,de layed release 2023 024 [place] [address], [place], [address], 08/22/2023 11:59:26 ferrous sulfate 325 mg (65 mg iron) tablet 2023 024 [facility], [facility] [address], [place], [address], 08/22/2023 12:04:02 lidocaine 5 % topical ointment 2023 024 [facility], [address], [place], [address], 12/26/2023 08:57:57 Cranberry Concentra te 500 mg capsule 2023 024 [facility], [address], [place], [address], 06/19/2023 13:14:22 ibuprofen 400 mg tablet 2022 023 [email or web address] [facility], [address], [place], [address], 12/26/2023 07:21:18 Patient TargetsNo targets recorded. Patient Instructions Encounter Date Encounter Id Patient Instructions Last Modified By Organization Details Last Modified Time 12/20/2022 [id number] eating healthy foods: care instructions [email or web address] Not available 12/20/2022 13:09:54 06/19/2023 [id number] cough: care instructions [email or web address] Not available 06/19/2023 13:12:18 epilepsy: care instructions Not available 06/19/2023 13:06:19 08/22/2023 [id number] nausea and vomit ing: care instructions [email or web address] Not available 08/22/2023 12:04:37 gastroesophageal reflux disease (GERD): care instructions [email or web address] Not available 08/22/2023 11:59:24 anemia: care instructions [email or web address] Not available 08/22/2023 12:04:01 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 Sc reening for malignant neoplasm of cervix Referring Physician: Alf Madden [facility], Encounter Date: 08/22/2023 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 Referral for Gastroesophageal reflux disease without esophagitis Referring Physician: Alf Madden [facility], Encounter Date: 08/22/2023 Results Created Date Observation Date Name Description Value Unit Range Abnormal Flag Note LastModifiedBy Organization Detail LastModifiedTime 12/21/19 23 12/20/2022 ALLER GENS W/TOT AL IGE AREA 8 class description Commen t Level s of Speci fic IgE Class Descr iptio n of Class ----- ----- ----- ----- ----- -- ----- ----- ----- ----- ----- < 0.10 0 Negat alon 0.10 - 0.31 0/I Equiv ocal/ Low 0.32 - 0.55 I Low 0.56 - 1.40 II Moder ate 1.41 - 3.90 III High 3.91 - 19.00 IV Very High 19.01 - 100.0 0 V Very High >100. 00 Very High Not Available [facility] ([facility]) [address] [place], [address], 12/24/2022 19:07:49 12/21/19 23 12/24/2022 ALLER GENS W/TOT AL IGE AREA 8 immunoglobul in E, total 6 IU/mL 6-495 Not Available [facility] ([facility]) [address] [place], [address], 12/24/2022 19:07:49 12/21/19 23 12/24/2022 ALLER GENS W/TOT AL IGE AREA 8 A721-NuW D pteronyssinu s <0.10 kU/L class0 Not Available [facility] ([facility]) [address] [place], [address], 12/24/2022 19:07:49 12/21/19 23 12/24/2022 ALLER GENS W/TOT AL IGE AREA 8 C553-SjG D farinae <0.10 Not Available [facility] ([facility]) [address] [place], [address], 12/24/2022 19:07:49 12/21/19 23 12/24/2022 ALLER GENS W/TOT AL IGE AREA 8 L114-EwB CAT dander <0.10 Not Available [facility] ([facility]) [address] [place], [address], 12/24/2022 19:07:49 12/21/19 23 12/24/2022 ALLER GENS W/TOT AL IGE AREA 8 L099-KzK dog dander <0.10 Not Available [facility] ([facility]) [address] [facility], [place], [address], 12/24/2022 19:07:49 12/21/19 23 12/24/2022 ALLER GENS W/TOT AL IGE AREA 8 o816-FiY bermuda grass <0.10 Not Available [facility] ([facility]) [address] [facility], [place], [address], 12/24/2022 19:07:49 12/21/19 23 12/24/2022 ALLER GENS W/TOT AL IGE AREA 8 f857-ZvT leonardo grass <0.10 Not Available [facility] ([facility]) [address] [facility], [place], [address], 12/24/2022 19:07:49 12/21/19 23 12/24/2022 ALLER GENS W/TOT AL IGE AREA 8 W382-GjK cockroach, ethiopian <0.10 Not Available [facility] ([facility]) [address] [place], [address], 12/24/2022 19:07:49 12/21/19 23 12/24/2022 ALLER GENS W/TOT AL IGE AREA 8 O909-SmN penicillium chrysogen <0.10 Not Available [facility] ([facility]) [address] [place], [address], 12/24/2022 19:07:49 12/21/19 23 12/24/2022 ALLER GENS W/TOT AL IGE AREA 8 X891-McS cladosporium herbarum <0.10 Not Available [facility] ([facility]) [address] [place], [address], 12/24/2022 19:07:49 12/21/19 23 12/24/2022 ALLER GENS W/TOT AL IGE AREA 8 A559-ItJ aspergillus fumigatus <0.10 Not Available [facility] ([facility]) [address] [facility], [place], [address], 12/24/2022 19:07:49 12/21/19 23 12/24/2022 ALLER GENS W/TOT AL IGE AREA 8 W224-XaO alternaria alternata <0.10 Not Available [facility] ([facility]) [address] [facility], [place], [address], 12/24/2022 19:07:49 12/21/19 23 12/24/2022 ALLER GENS W/TOT AL IGE AREA 8 W464-GaJ maple/box elder <0.10 Not Available [facility] ([facility]) [address] [facility], [place], [address], 12/24/2022 19:07:49 12/21/19 23 12/24/2022 ALLER GENS W/TOT AL IGE AREA 8 E947-QdP cedar, mountain <0.10 Not Available [facility] ([facility]) [address] [facility], [place], [address], 12/24/2022 19:07:49 12/21/19 23 12/24/2022 ALLER GENS W/TOT AL IGE AREA 8 Q512-RxL oak, white <0.10 Not Available [facility] ([facility]) [address] [facility], [place], [address], 12/24/2022 19:07:49 12/21/19 23 12/24/2022 ALLER GENS W/TOT AL IGE AREA 8 Z620-BpX elm, chilean <0.10 Not Available [facility] ([facility]) [address] [facility], [place], [address], 12/24/2022 19:07:49 12/21/19 23 12/24/2022 ALLER GENS W/TOT AL IGE AREA 8 X526-OeZ maple leaf sycamore <0.10 Not Available [facility] ([facility]) [address] [facility], [place], [address], 12/24/2022 19:07:49 12/21/19 23 12/24/2022 ALLER GENS W/TOT AL IGE AREA 8 F872-CbY cottonwood <0.10 Not Available [facility] ([facility]) [address] [facility], [place], [address], 12/24/2022 19:07:49 12/21/19 23 12/24/2022 ALLER GENS W/TOT AL IGE AREA 8 O745-RfM arnold, white <0.10 Not Available [facility] ([facility]) [address] [facility], [place], [address], 12/24/2022 19:07:49 12/21/19 23 12/24/2022 ALLER GENS W/TOT AL IGE AREA 8 T977-ClO walnut <0.10 Not Available [facility] ([facility]) [address] [facility], [place], [address], 12/24/2022 19:07:49 12/21/19 23 12/24/2022 ALLER GENS W/TOT AL IGE AREA 8 G732-DeB pecan, hickory <0.10 Not Available [facility] ([facility]) [address] [facility], [place], [address], 12/24/2022 19:07:49 12/21/19 23 12/24/2022 ALLER GENS W/TOT AL IGE AREA 8 C562-KyG white mulberry <0.10 Not Available [facility] ([facility]) [address] [facility], [place], [address], 12/24/2022 19:07:49 12/21/19 23 12/24/2022 ALLER GENS W/TOT AL IGE AREA 8 K492-ByK ragweed, short <0.10 Not Available [facility] ([facility]) [address] [place], [address], 12/24/2022 19:07:49 12/21/19 23 12/24/2022 ALLER GENS W/TOT AL IGE AREA 8 D120-UuR thistle, faroese <0.10 Not Available [facility] ([facility]) [address] [place], [address], 12/24/2022 19:07:49 12/21/19 23 12/24/2022 ALLER GENS W/TOT AL IGE AREA 8 P071-LjM pigweed, common <0.10 Not Available [facility] ([facility]) [address] [place], [address], 12/24/2022 19:07:49 12/21/19 23 12/24/2022 ALLER GENS W/TOT AL IGE AREA 8 B578-GyA rough marshelder <0.10 Not Available [facility] ([facility]) [address] [place], [address], 12/24/2022 19:07:49 12/21/19 23 12/24/2022 ALLER GENS W/TOT AL IGE AREA 8 P864-GbU mouse urine <0.10 Not Available [facility] ([facility]) [address] [place], [address], 12/24/2022 19:07:49 12/21/19 23 12/24/2022 FOOD ALLER GY PROFI LE U623-CuP egg white <0.10 Not Available [facility] ([facility]) [address] [place], [address], 12/24/2022 19:07:50 12/21/19 23 12/24/2022 FOOD ALLER GY PROFI LE V152-PcA peanut <0.10 Not Available [facility] ([facility]) [address] [place], [address], 12/24/2022 19:07:50 12/21/19 23 12/24/2022 FOOD ALLER GY PROFI LE W479-InS soybean <0.10 Not Available [facility] ([facility]) [address] [place], [address], 12/24/2022 19:07:50 12/21/19 23 12/24/2022 FOOD ALLER GY PROFI LE J580-NwA milk <0.10 Not Available [facility] ([facility]) [address] [place], [address], 12/24/2022 19:07:50 12/21/19 23 12/24/2022 FOOD ALLER GY PROFI LE D973-XnJ clam <0.10 Not Available [facility] ([facility]) [address] [place], [address], 12/24/2022 19:07:50 12/21/19 23 12/24/2022 FOOD ALLER GY PROFI LE A843-ErZ shrimp <0.10 Not Available [facility] ([facility]) [address] [place], [address], 12/24/2022 19:07:50 12/21/19 23 12/24/2022 FOOD ALLER GY PROFI LE Q240-GdE walnut <0.10 Not Available [facility] ([facility]) [address] [place], [address], 12/24/2022 19:07:50 12/21/19 23 12/24/2022 FOOD ALLER GY PROFI LE L203-CkT codfish <0.10 Not Available [facility] ([facility]) [address] [place], [address], 12/24/2022 19:07:50 12/21/19 23 12/24/2022 FOOD ALLER GY PROFI LE D468-HkG scallop <0.10 Not Available [facility] ([facility]) [address] [facility] [place], [address], 12/24/2022 19:07:50 12/21/19 23 12/24/2022 FOOD ALLER GY PROFI LE Z599-ZhL wheat <0.10 Not Available [facility] ([facility]) [address] [facility], [place], [address], 12/24/2022 19:07:50 12/21/19 23 12/24/2022 FOOD ALLER GY PROFI LE J516-VbS corn <0.10 Not Available [facility] ([facility]) [address] [facility], [place], [address], 12/24/2022 19:07:50 12/21/19 23 12/24/2022 FOOD ALLER GY PROFI LE A836-ZsP sesame seed <0.10 Not Available [facility] ([facility]) [address] [facility], [place], [address], 12/24/2022 19:07:50 06/19/19 24 06/20/2023 LIPID PANEL cholesterol, total 282 mg/dL 100-19 9 above high normal Not Available [facility] ([facility]) [address] [facility] [place], [address], 06/20/2023 10:13:52 06/19/19 24 06/20/2023 LIPID PANEL triglyceride s 208 mg/dL 0-149 above high normal Not Available [facility] ([facility]) [address] [place], [address], 06/20/2023 10:13:52 06/19/19 24 06/20/2023 LIPID PANEL HDL cholesterol 77 mg/dL >39 Not Available [facility] ([facility]) [address] [place], [address], 06/20/2023 10:13:52 06/19/19 24 06/20/2023 LIPID PANEL VLDL cholesterol nichelle 38 mg/dL 5-40 Not Available [facility] ([facility]) [address] [place], [address], 06/20/2023 10:13:52 06/19/19 24 06/20/2023 LIPID PANEL LDL chol calc ([facility]) 167 mg/dL 0-99 above high normal Not Available [facility] ([facility]) [address] [place], [address], 06/20/2023 10:13:52 06/19/19 24 06/20/2023 COMP. METAB OLIC PANEL (14) glucose 78 mg/dL 70-99 Not Available [facility] ([facility]) [address] [place], [address], 06/20/2023 10:13:53 06/19/19 24 06/20/2023 COMP. METAB OLIC PANEL (14) BUN 18 mg/dL 6-24 Not Available [facility] ([facility]) [address] [place], [address], 06/20/2023 10:13:53 06/19/19 24 06/20/2023 COMP. METAB OLIC PANEL (14) creatinine 0.77 mg/dL 0.57-1 .00 Not Available [facility] ([facility]) [address] [place], [address], 06/20/2023 10:13:53 06/19/19 24 06/20/2023 COMP. METAB OLIC PANEL (14) eGFR 96 mL/mi n/1.7 3 >59 Not Available [facility] ([facility]) [address] [place], [address], 06/20/2023 10:13:53 06/19/19 24 06/20/2023 COMP. METAB OLIC PANEL (14) BUN/creatini ne ratio 23 9-23 Not Available [facility] ([facility]) [address] [place], [address], 06/20/2023 10:13:53 06/19/19 24 06/20/2023 COMP. METAB OLIC PANEL (14) sodium 142 mmol/ L 134-14 4 Not Available [facility] ([facility]) [address], [place], [address], 06/20/2023 10:13:53 06/19/19 24 06/20/2023 COMP. METAB OLIC PANEL (14) potassium 4.1 mmol/ L 3.5-5. 2 Not Available [facility] ([facility]) [address], [place], [address], 06/20/2023 10:13:53 06/19/19 24 06/20/2023 COMP. METAB OLIC PANEL (14) chloride 106 mmol/ L 96-106 Not Available [facility] ([facility]) [address] [facility], [place], [address], 06/20/2023 10:13:53 06/19/19 24 06/20/2023 COMP. METAB OLIC PANEL (14) carbon dioxide, total 20 mmol/ L 20-29 Not Available [facility] ([facility]) [address] [facility], [place], [address], 06/20/2023 10:13:53 06/19/19 24 06/20/2023 COMP. METAB OLIC PANEL (14) calcium 9.0 mg/dL 8.7-10 .2 Not Available [facility] ([facility]) [address] [facility], [place], [address], 06/20/2023 10:13:53 06/19/19 24 06/20/2023 COMP. METAB OLIC PANEL (14) protein, total 7.3 g/dL 6.0-8. 5 Not Available [facility] ([facility]) [address] [facility], [place], [address], 06/20/2023 10:13:53 06/19/19 24 06/20/2023 COMP. METAB OLIC PANEL (14) albumin 4.5 g/dL 3.9-4. 9 Not Available [facility] ([facility]) [address] [facility], [place], [address], 06/20/2023 10:13:53 06/19/19 24 06/20/2023 COMP. METAB OLIC PANEL (14) globulin, total 2.8 g/dL 1.5-4. 5 Not Available [facility] ([facility]) [address] [facility], [place], [address], 06/20/2023 10:13:53 06/19/19 24 06/20/2023 COMP. METAB OLIC PANEL (14) A/G ratio 1.6 1.2-2. 2 Not Available [facility] ([facility]) [address] [facility], [place], [address], 06/20/2023 10:13:53 06/19/19 24 06/20/2023 COMP. METAB OLIC PANEL (14) bilirubin, total <0.2 mg/dL 0.0-1. 2 Not Available [facility] ([facility]) [address] [facility], [place], [address], 06/20/2023 10:13:53 06/19/19 24 06/20/2023 COMP. METAB OLIC PANEL (14) alkaline phosphatase 114 IU/L 44-121 Not Available [facility] ([facility]) [address] [facility], [place], [address], 06/20/2023 10:13:53 06/19/19 24 06/20/2023 COMP. METAB OLIC PANEL (14) AST (SGOT) 38 IU/L 0-40 Not Available [facility] ([facility]) [address] [facility], [place], [address], 06/20/2023 10:13:53 06/19/19 24 06/20/2023 COMP. METAB OLIC PANEL (14) ALT (SGPT) 61 IU/L 0-32 above high normal Not Available [facility] ([facility]) [address] [facility], [place], [address], 06/20/2023 10:13:53 06/19/1906/20/2023 TSH TSH 3.320 uIU/m L 0.450- 4.500 Not Available [facility] ([facility]) [address] [facility], [place], [address], 06/20/2023 13:12:27 02/21/2002/23/2024 Bacte luz ident ified in Urine by Cultu re bacteria identified in urine by culture 10,000 -50,00 0 CFU/mL urogen ital lobito Cultu re Urine 10,00 0-50, 000 CFU/m L uroge nital lobito NEVILLE 02/21 11:25 PM [facility]OL[facility] GY Not Available Not Available 05/30/2024 11:48:18 02/21/2002/21/2024 Urina lysis panel - Urine by Auto color UA Yellow text: straw, yellow Color UA Yello w Straw , Yello w 02/20 12:18 PM [facility] Not Available Not Available 05/30/2024 11:48:18 02/21/20 24 02/21/2024 Urina lysis panel - Urine by Auto clarity UA Slt Cloudy text: clear abnormal Sugey ty UA Slt [place] y (A) Clear 02/20 12:18 PM [facility] Not Available Not Available 05/30/2024 11:48:18 02/21/2002/21/2024 Urina lysis panel - Urine by Auto specific gravity UA 1.027 low: 1.005h igh: 1.03 Speci fic Gravi ty UA 1.027 1.005 - 1.030 02/20 12:18 PM [facility] Not Available Not Available 05/30/2024 11:48:18 11/14/20 24 02/21/2024 Urina lysis panel - Urine by Auto pH UA 5 pH low: 5pHhig h: 8pH pH UA 5.0 5.0 - 8.0 pH 02/20 12:18 PM [facility] Not Available Not Available 05/30/2024 11:48:18 02/21/20 24 02/21/2024 Urina lysis panel - Urine by Auto protein UA 2+ text: negati ve abnormal Prote in UA 2+ (A) Negat alon 02/20 12:18 PM [facility] Not Available Not Available 05/30/2024 11:48:18 02/21/20 24 02/21/2024 Urina lysis panel - Urine by Auto glucose UA Negati ve text: negati ve Gluco se UA Negat alon Negat alon 02/20 12:18 PM [facility] Not Available Not Available 05/30/2024 11:48:18 02/21/20 24 02/21/2024 Urina lysis panel - Urine by Auto ketone UA Negati ve text: negati ve Keton e UA Negat alon Negat alon 02/20 12:18 PM [facility] Not Available Not Available 05/30/2024 11:48:18 02/21/20 24 02/21/2024 Urina lysis panel - Urine by Auto bilirubin UA Negati ve text: negati ve Bilir ubin UA Negat alon Negat alon 02/20 12:18 PM [facility] Not Available Not Available 05/30/2024 11:48:18 02/21/20 24 02/21/2024 Urina lysis panel - Urine by Auto blood UA Negati ve text: negati ve Blood UA Negat alon Negat alon 02/20 12:18 PM [facility] Not Available Not Available 05/30/2024 11:48:18 02/21/20 24 02/21/2024 Urina lysis panel - Urine by Auto nitrite UA Negati ve text: negati ve Nitri te UA Negat alon Negat alon 02/20 12:18 PM [facility] Not Available Not Available 05/30/2024 11:48:18 02/21/20 24 02/21/2024 Urina lysis panel - Urine by Auto leukocyte esterase 3+ text: negati ve abnormal Leuko cyte Cynthia ase 3+ (A) Negat alon 02/20 12:18 PM [facility] Not Available Not Available 05/30/2024 11:48:18 02/21/20 24 02/21/2024 Urina lysis panel - Urine by Auto urobilinogen UA Negati ve text: negati ve mg/dL Urobi linog en UA Negat alon Negat alon mg/dL 02/20 12:18 PM [facility] Not Available Not Available 05/30/2024 11:48:18 02/21/20 24 02/21/2024 Urina lysis panel - Urine by Auto RBC UA 3-5 text: none seen, 0-2, 3-5 /hpf RBC UA 3-5 None Seen, 0-2, 3-5 /HPF 02/20 12:18 PM [facility] Not Available Not Available 05/30/2024 11:48:18 02/21/20 24 02/21/2024 Urina lysis panel - Urine by Auto WBC UA >100 text: none seen, 0-5 /hpf abnormal WBC UA >100 (A) None Seen, 0-5 /HPF 02/20 12:18 PM [facility] Not Available Not Available 05/30/2024 11:48:18 02/21/20 24 02/21/2024 Urina lysis panel - Urine by Auto squamous epithelial cells UA 3-5 text: none seen, 0-2, 3-5 /hpf Squam ous Epith elial Cells UA 3-5 None Seen, 0-2, 3-5 /HPF 02/20 12:18 PM [facility] Not Available Not Available 05/30/2024 11:48:18 02/21/20 24 02/21/2024 Urina lysis panel - Urine by Auto mucus UA 3+ text: /lpf Mucus UA 3+ /LPF 02/20 12:18 PM [facility] Not Available Not Available 05/30/2024 11:48:18 02/21/2002/21/2024 Urina lysis panel - Urine by Auto Unknown Analyte Lab Status , Cultur e Reflex Indica rupinder. Lab Statu s, Cultu re Refle x Indic ated. Not Available Not Available 05/30/2024 11:48:18 02/21/20 24 02/21/2024 Urina lysis panel - Urine by Auto interpretati on and review of laboratory results Abnorm al Not Available Not Available 11:48:18 02/21/20 24 02/21/2024 CBC W Auto Diffe renti al panel - Blood leukocytes [#/volume] in blood by automated count 7.4 text: 4.0 - 10.7 x10e9/ L WBC 7.4 4.0 - 10.7 x10E9 /L 02/20 12:12 PM [facility] Not Available Not Available 05/30/2024 11:48:18 02/21/20 24 02/21/2024 CBC W Auto Diffe renti al panel - Blood erythrocytes [#/volume] in blood by automated count 4.67 text: 3.90 - 5.20 x10e12 /L RBC Count 4.67 3.90 - 5.20 x10E1 2/L 02/20 12:12 PM [facility] Not Available Not Available 05/30/2024 11:48:18 02/21/20 24 02/21/2024 CBC W Auto Diffe renti al panel - Blood hemoglobin [mass/volume ] in blood 14.4 g/dL low: 11.9g/ dLhigh : 15.8g/ dL Hemog lobin 14.4 11.9 - 15.8 g/dL 02/20 12:12 PM [facility] [facility] Not Available Not Available 05/30/2024 11:48:18 02/21/20 24 02/21/2024 CBC W Auto Diffe renti al panel - Blood hematocrit [volume fraction] of blood by automated count 45.2 % low: 34.8%h igh: 46.1% Hemat ocrit 45.2 34.8 - 46.1 % 02/20 12:12 PM [facility] Not Available Not Available 05/30/2024 11:48:18 02/21/20 24 02/21/2024 CBC W Auto Diffe renti al panel - Blood MCV [entitic volume] by automated count 96.8 fL low: 80fLhi gh: 98fL MCV 96.8 80.0 - 98.0 fL 02/20 12:12 PM [facility] Not Available Not Available 05/30/2024 11:48:18 02/21/20 24 02/21/2024 CBC W Auto Diffe renti al panel - Blood MCH [entitic mass] by automated count 30.8 pg low: 26.7pg high: 33.6pg MCH 30.8 26.7 - 33.6 pg 02/20 12:12 PM [facility] Not Available Not Available 05/30/2024 11:48:18 02/21/2002/21/2024 CBC W Auto Diffe renti al panel - Blood MCHC [mass/volume ] by automated count 31.9 g/dL low: 31.7g/ dLhigh : 36.3g/ dL MCHC 31.9 31.7 - 36.3 g/dL 02/20 12:12 PM [facility] Not Available Not Available 05/30/2024 11:48:18 02/21/2002/21/2024 CBC W Auto Diffe renti al panel - Blood erythrocyte distribution width [ratio] by automated count 14.2 % low: 11.3%h igh: 14.8% RDW-C V 14.2 11.3 - 14.8 % 02/20 12:12 PM [facility] Not Available Not Available 05/30/2024 11:48:18 02/21/20 24 02/21/2024 CBC W Auto Diffe renti al panel - Blood platelets [#/volume] in blood by automated count 285 text: 150 - 420 x10e9/ L Plate let Count 285 150 - 420 x10E9 /L 02/20 12:12 PM [facility] Not Available Not Available 05/30/2024 11:48:18 02/21/2002/21/2024 CBC W Auto Diffe renti al panel - Blood platelet mean volume [entitic volume] in blood by automated count 9.7 fL low: 7.8fLh igh: 11.4fL MPV 9.7 7.8 - 11.4 fL 02/20 12:12 PM [facility] Not Available Not Available 05/30/2024 11:48:18 02/21/20 24 02/21/2024 CBC W Auto Diffe renti al panel - Blood neutrophils/ 100 leukocytes in blood by automated count 70.2 % low: 41%hig h: 74% Neutr ophil % 70.2 41.0 - 74.0 % 02/20 12:12 PM [facility] Not Available Not Available 05/30/2024 11:48:18 02/21/2002/21/2024 CBC W Auto Diffe renti al panel - Blood lymphocytes/ 100 leukocytes in blood by automated count 25.3 % low: 17%hig h: 47% Lymph ocyte % 25.3 17.0 - 47.0 % 02/20 12:12 PM [facility] Not Available Not Available 05/30/2024 11:48:18 02/21/2002/21/2024 CBC W Auto Diffe renti al panel - Blood monocytes/10 0 leukocytes in blood by automated count 4.1 % low: 3%high : 11% Monoc yte % 4.1 3.0 - 11.0 % 02/20 12:12 PM [facility] Not Available Not Available 05/30/2024 11:48:18 02/21/2002/21/2024 CBC W Auto Diffe renti al panel - Blood eosinophils/ 100 leukocytes in blood by automated count 0 % low: 0%high : 7% Eosin ophil % 0.0 0.0 - 7.0 % 02/20 12:12 PM [facility] Not Available Not Available 05/30/2024 11:48:18 02/21/2002/21/2024 CBC W Auto Diffe renti al panel - Blood basophils/10 0 leukocytes in blood by automated count 0.1 % low: 0%high : 1.6% Basop hil % 0.1 0.0 - 1.6 % 02/20 12:12 PM [facility] Not Available Not Available 05/30/2024 11:48:18 02/21/20 24 02/21/2024 CBC W Auto Diffe renti al panel - Blood immature granulocytes /100 leukocytes in blood by automated count 0.3 % low: 0%high : 1% Immat ure Granu locyt es % 0.3 0.0 - 1.0 % 02/20 12:12 PM [facility] Not Available Not Available 05/30/2024 11:48:18 02/21/20 24 02/21/2024 CBC W Auto Diffe renti al panel - Blood neutrophils [#/volume] in blood by automated count 5.16 text: 1.60 - 7.50 x10e9/ L Neutr ophil Absol capitan grande band 5.16 1.60 - 7.50 x10E9 /L 02/20 12:12 PM [facility] Not Available Not Available 05/30/2024 11:48:18 02/21/20 24 02/21/2024 CBC W Auto Diffe renti al panel - Blood lymphocytes [#/volume] in blood by automated count 1.86 text: 1.00 - 4.40 x10e9/ L Lymph ocyte Absol cap[place] band 1.86 1.00 - 4.40 x10E9 /L 02/20 12:12 PM [facility] Not Available Not Available 05/30/2024 11:48:18 02/21/20 24 02/21/2024 CBC W Auto Diffe renti al panel - Blood monocytes [#/volume] in blood by automated count 0.3 text: 0.15 - 1.00 x10e9/ L Monoc yte Absol cap[place] grande band 0.30 0.15 - 1.00 x10E9 /L 02/20 12:12 PM [facility] Not Available Not Available 05/30/2024 11:48:18 02/21/20 24 02/21/2024 CBC W Auto Diffe renti al panel - Blood eosinophils [#/volume] in blood 0 text: 0.00 - 0.60 x10e9/ L Eosin ophil Absol [place] band 0.00 0.00 - 0.60 x10E9 /L 02/20 12:12 PM [facility] Not Available Not Available 05/30/2024 11:48:18 02/21/20 24 02/21/2024 CBC W Auto Diffe renti al panel - Blood basophils [#/volume] in blood by automated count 0.01 text: 0.00 - 0.13 x10e9/ L Basop hil Absol cap[place] band 0.01 0.00 - 0.13 x10E9 /L 02/20 12:12 PM [facility] Not Available Not Available 05/30/2024 11:48:18 02/21/20 24 02/21/2024 CBC W Auto Diffe renti al panel - Blood interpretati on and review of laboratory results Normal Not Available Not Available 05/11 11:48:18 02/21/2002/21/2024 Basic metab olic 2000 panel - Serum or Plasm a urea nitrogen [mass/volume ] in serum or plasma 17 mg/dL low: 7mg/dL high: 26mg/d L BUN 17 7 - 26 mg/dL 02/20 12:34 PM [facility] Not Available Not Available 05/30/2024 11:48:18 02/21/20 24 02/21/2024 Basic metab olic 2000 panel - Serum or Plasm a creatinine [mass/volume ] in serum or plasma 0.74 mg/dL low: 0.56mg /dLhig h: 0.96mg /dL Creat inine 0.74 0.56 - 0.96 mg/dL 02/20 12:34 PM [facility] Not Available Not Available 05/30/2024 11:48:18 02/21/20 24 02/21/2024 Basic metab olic 2000 panel - Serum or Plasm a sodium [moles/volum e] in serum or plasma 144 mmol/ L low: 136mmo l/Lhig h: 145mmo l/L Charles tate 144 136 - 145 mmol/ L 02/20 12:34 PM [facility] Not Available Not Available 05/30/2024 11:48:18 02/21/20 24 02/21/2024 Basic metab olic 2000 panel - Serum or Plasm a potassium [moles/volum e] in serum or plasma 4.9 mmol/ L low: 3.5mmo l/Lhig h: 4.5mmo l/L high Potas sium 4.9 (H) 3.5 - 4.5 mmol/ L 02/20 12:34 PM [facility] Not Available Not Available 05/30/2024 11:48:18 02/21/20 24 02/21/2024 Basic metab olic 1999 panel - Serum or Plasm a chloride [moles/volum e] in serum or plasma 117 mmol/ L low: 98mmol /Lhigh : 107mmo l/L high Chlor moira 117 (H) 98 - 107 mmol/ L 02/20 12:34 PM [facility] Not Available Not Available 05/30/2024 11:48:18 02/21/20 24 02/21/2024 Basic metab olic 2000 panel - Serum or Plasm a carbon dioxide, total [moles/volum e] in serum or plasma 20 mmol/ L low: 22mmol /Lhigh : 29mmol /L low CO2 20 (L) 22 - 29 mmol/ L 02/20 12:34 PM [facility] Not Available Not Available 05/30/2024 11:48:18 02/21/20 24 02/21/2024 Basic metab olic 2000 panel - Serum or Plasm a glucose [mass/volume ] in serum or plasma 99 mg/dL low: 70mg/d Lhigh: 99mg/d L Gluco se 99 70 - 99 mg/dL 02/20 12:34 PM [facility] Not Available Not Available 05/30/2024 11:48:18 02/21/20 24 02/21/2024 Basic metab olic 1999 panel - Serum or Plasm a calcium [moles/volum e] in serum or plasma 9.8 mg/dL low: 8.4mg/ dLhigh : 10.2mg /dL Calci um 9.8 8.4 - 10.2 mg/dL 02/20 12:34 PM [facility] Not Available Not Available 05/30/2024 11:48:18 02/21/20 24 02/21/2024 Basic metab olic 2000 panel - Serum or Plasm a anion gap 7 low: 6high: 16 Anion Gap 7 6 - 16 02/20 12:34 PM [facility] Not Available Not Available 05/30/2024 11:48:18 02/21/20 24 02/21/2024 Basic metab olic 2000 panel - Serum or Plasm a urea nitrogen/cre atinine [mass ratio] in serum or plasma 23 low: 7high: 23 BUN/C reati nine Ratio 23 7 - 23 02/20 12:34 PM [facility] Not Available Not Available 05/30/2024 11:48:18 02/21/20 24 02/21/2024 Basic metab olic 1999 panel - Serum or Plasm a osmolality calculated 300 text: 275 - 295 mOsm/k g high Osmol ality Calcu lated 300 (H) 275 - 295 mOsm/ kg 02/20 12:34 PM [facility] Not Available Not Available 05/30/2024 11:48:18 02/21/20 24 02/21/2024 Basic metab olic 1999 panel - Serum or Plasm a glomerular filtration rate/1.73 sq M.predicted [volume rate/area] in serum, plasma or blood by creatinine-b ased formula (CKD-epi 2020) text: >=90 mL/min /1.73 m2 eGFR by CKD-E PI >90 >=90 mL/mi n/1.7 3 m2 02/20 12:34 PM [facility] Not Available Not Available 05/30/2024 11:48:18 02/21/20 24 02/21/2024 Basic metab olic 2000 panel - Serum or Plasm a interpretati on and review of laboratory results Abnorm al Not Available Not Available 11:48:18 03/17/20 24 03/18/2024 Tissu e Patho logy biops y repor t pathology report.secti on heading Surgic al Pathol ogy Report Case: [id number] Author izing Provid er: Tej Samuels MD Collec rupinder: 2023 01:14 PM Orderi ng Locati on: [facility] Receiv ed: 2023 02:53 PM Pathol ogist: Katya Ventura MD Specim en: Foreig n Object , VAGUS NERVE STIMUL ATOR GENERA TOR Case Repor t Surgi nichelle Patho logy Repor t Case: [id number] Autho ronal tsang Provi kary: Jennifer Ybarra rd, MD Colle cted: 03/17 01:14 PM Order ing Locat ion: [facility] Recei jae: 03/17 02:53 PM Patho logis t: Ottoniel Ramirez MD Speci men: Forei gn Objec t, VAGUS NERVE STIMU LATOR GENER ATOR 03/18 10:02 AM [facility] Not Available Not Available 05/30/2024 11:48:13 03/17/20 24 03/18/2024 Tissu e Patho logy biops y repor t pathology report final diagnosis narrative Foreig n body, vagus nerve stimul ator, remova l: - Medica l hardwa re consis tent with vagus nerve stimul ator (gross examin ation only) Final Diagn osis Forei gn body, vagus nerve stimu lator , remov al: - Medic al hardw are consi stent with vagus nerve stimu lator (quinn s exami natio n only) 03/18 10:02 AM [facility] Elect lisa panchal d by Ottoniel Ramirez MD on 03/18 at 10:02 AM Not Available Not Available 05/30/2024 11:48:13 03/17/20 24 03/18/2024 Tissu e Patho logy biops y repor t pathology report relevant history narrative Batter y end-of -life vagus nerve stimul ator Clini nichelle Histo ry Batte ry end-o f-lif e vagus nerve stimu lator 03/18 10:02 AM [facility] Not Available Not Available 05/30/2024 11:48:13 03/17/20 24 03/18/2024 Tissu e Patho logy biops y repor t pathology report gross observation narrative The requis ition and specim en(s) are identi fied with the patijenny t's name, Sweta gutierrez. Receiv ed withou t fixati ve, specim en A , is a 5.0 x 5.0 x 0.6 cm circul ar silver , metall ic medica l device topped with a portio n of 2.7 x 0.9 x 0.5 cm clear plasti c with wiring inside . The inscri ption writte n on the device reads Aspir eSR TM; Model 106; S/N [id number] ; [employer] No tissue is submit rupinder for micros copic examin ation, gross only. AL Gross Descr iptio n The requi sitio n and speci men(s ) are ident ified with the patie nt's name, Mildred vivar. Recei jae witho ut fixat alon, speci men A , is a 5.0 x 5.0 x 0.6 cm circu lar silve r, metal lic medic al devic e toppe d with a porti on of 2.7 x 0.9 x 0.5 cm clear plast ic with wirin g insid e. The inscr iptio n writt en on the devic e reads Aspi reSR TM; Model 106; S/N [id number]; [employer] No tissu e is submi tted for micro scopi c exami natio n, gross only. AL 03/18 10:02 AM [facility] Not Available Not Available 05/30/2024 11:48:13 03/17/20 24 03/18/2024 Tissu e Patho logy biops y repor t pathologist location at [facility] Patho logis t Locat ion at [facility] Jolene Carroll 03/18 10:02 AM [facility] Not Available Not Available 05/30/2024 11:48:13 03/17/20 24 03/18/2024 Tissu e Patho logy biops y repor t service comment The perfor jazmin charac terist ics of all immuno histoc hemica l and indire ct immuno fluore scence stains (if any) cited in this report were determ ined by the Histop atholo gy Labora [facility] of [facility] sit. Some of these tests were develo ped by our own labora tory and have not been cleare d or approv ed by the [place] Food and Drug Admini strati on. The FDA does not requir e this test to go throug h premar ket FDA review . These tests are used for clinic al purpos es. They should not be regard ed as invest igatio nal or for resear ch. This labora tory is certif ied under the Clinic al Labora torheather Improv ement Amendm ents (CLIA) as qualif ied to perfor m high comple xity clinic al labora donaldo testin g. This case has been person ally review ed and interp reted by the attend ing (teach ing) pathol ogist. Discl aimer The perfo rmanc e joan cteri stics of all immun ohist ochem ical and indir ect immun ofluo resce nce stain s (if any) cited in this repor t were deter mined by the Histo patho logy Labor atory of [facility] rsity . Some of these tests were devel oped by our own labor atory and have not been clear ed or appro jae by the US Food and Drug Admin istra tion. The FDA does not requi re this test to go throu gh ileana rket FDA revie w. These tests are used for clini nichelle purpo ses. They shoul d not be regar ded as inves tigat ional or for resea rch. This labor atory is certi fied under the Clini nichelle Labor atory Impro vemen t Amend ments (CLIA ) as quali fied to perfo rm high compl exity clini nichelle labor atory testi ng. This case has been perso trell revie wed and inter prete d by the compa gonzalez ([facility] patho logis t. 03/18 10:02 AM [facility] Not Available Not Available 05/30/2024 11:48:13 03/17/20 24 03/18/2024 Tissu e Patho logy biops y repor t embedded images Embed ded Image s 03/18 10:02 AM [facility] Not Available Not Available 05/30/2024 11:48:13 03/17/20 24 03/17/2024 Blood type and Indir ect antib isra scree n panel - Blood blood group antibody screen [presence] in serum or plasma NEG Antib isra Scree n NEG 03/17 1:04 PM [facility] Not Available Not Available 05/30/2024 11:48:13 03/17/20 24 03/17/2024 Blood type and Indir ect antib isra scree n panel - Blood ABO and Rh group [type] in blood A POS ABO Rh A POS 03/17 1:04 PM [facility] Not Available Not Available 05/30/2024 11:48:13 03/17/20 24 03/17/2024 CBC panel - Blood by Autom ated count leukocytes [#/volume] in blood by automated count 5.6 text: 4.0 - 10.7 x10e9/ L WBC 5.6 4.0 - 10.7 x10E9 /L 03/17 12:28 PM [facility] Not Available Not Available 05/30/2024 11:48:13 03/17/20 24 03/17/2024 CBC panel - Blood by Autom ated count erythrocytes [#/volume] in blood by automated count 4.07 text: 3.90 - 5.20 x10e12 /L RBC Count 4.07 3.90 - 5.20 x10E1 2/L 03/17 12:28 PM [facility] Not Available Not Available 05/30/2024 11:48:13 03/17/20 24 03/17/2024 CBC panel - Blood by Autom ated count hemoglobin [mass/volume ] in blood 12.7 g/dL low: 11.9g/ dLhigh : 15.8g/ dL Hemog lobin 12.7 11.9 - 15.8 g/dL 03/17 12:28 PM [facility] Not Available Not Available 05/30/2024 11:48:13 03/17/20 24 03/17/2024 CBC panel - Blood by Autom ated count hematocrit [volume fraction] of blood by automated count 38.9 % low: 34.8%h igh: 46.1% Hemat ocrit 38.9 34.8 - 46.1 % 03/17 12:28 PM [facility] Not Available Not Available 05/30/2024 11:48:13 03/17/20 24 03/17/2024 CBC panel - Blood by Autom ated count MCV [entitic volume] by automated count 95.6 fL low: 80fLhi gh: 98fL MCV 95.6 80.0 - 98.0 fL 03/17 12:28 PM [facility] Not Available Not Available 05/30/2024 11:48:13 03/17/20 24 03/17/2024 CBC panel - Blood by Autom ated count MCH [entitic mass] by automated count 31.2 pg low: 26.7pg high: 33.6pg MCH 31.2 26.7 - 33.6 pg 03/17 12:28 PM [facility] Not Available Not Available 05/30/2024 11:48:13 03/17/20 24 03/17/2024 CBC panel - Blood by Autom ated count MCHC [mass/volume ] by automated count 32.6 g/dL low: 31.7g/ dLhigh : 36.3g/ dL MCHC 32.6 31.7 - 36.3 g/dL 03/17 12:28 PM [facility] Not Available Not Available 05/30/2024 11:48:13 03/17/20 24 03/17/2024 CBC panel - Blood by Autom ated count erythrocyte distribution width [ratio] by automated count 14.1 % low: 11.3%h igh: 14.8% RDW-C V 14.1 11.3 - 14.8 % 03/17 12:28 PM [facility] Not Available Not Available 05/30/2024 11:48:13 03/17/20 24 03/17/2024 CBC panel - Blood by Autom ated count platelets [#/volume] in blood by automated count 298 text: 150 - 420 x10e9/ L Plate let Count 298 150 - 420 x10E9 /L 03/17 12:28 PM [facility] Not Available Not Available 05/30/2024 11:48:13 03/17/2003/17/2024 CBC panel - Blood by Autom ated count platelet mean volume [entitic volume] in blood by automated count 10 fL low: 7.8fLh igh: 11.4fL MPV 10.0 7.8 - 11.4 fL 03/17 12:28 PM [facility] Not Available Not Available 05/30/2024 11:48:13 03/17/20 24 03/17/2024 CBC panel - Blood by Autom ated count interpretati on and review of laboratory results Normal Not Available Not Available 05/11 11:48:13 03/17/2003/17/2024 Basic metab olic 2000 panel - Serum or Plasm a urea nitrogen [mass/volume ] in serum or plasma 17 mg/dL low: 7mg/dL high: 26mg/d L BUN 17 7 - 26 mg/dL 03/17 1:59 PM [facility] Not Available Not Available 05/30/2024 11:48:13 03/17/20 24 03/17/2024 Basic metab olic 2000 panel - Serum or Plasm a creatinine [mass/volume ] in serum or plasma 0.63 mg/dL low: 0.56mg /dLhig h: 0.96mg /dL Creat inine 0.63 0.56 - 0.96 mg/dL 03/17 1:59 PM [facility] Not Available Not Available 05/30/2024 11:48:13 03/17/20 24 03/17/2024 Basic metab olic 1999 panel - Serum or Plasm a sodium [moles/volum e] in serum or plasma 141 mmol/ L low: 136mmo l/Lhig h: 145mmo l/L Sodiu m 141 136 - 145 mmol/ L 03/17 1:59 PM [facility] Not Available Not Available 05/30/2024 11:48:13 03/17/20 24 03/17/2024 Basic metab olic 2000 panel - Serum or Plasm a potassium See Commen t low: 3.5mmo l/Lhig h: 4.5mmo l/L Potas sium See Comme nt 3.5 - 4.5 mmol/ L 03/17 1:59 PM [facility] Not Available Not Available 05/30/2024 11:48:13 03/17/20 24 03/17/2024 Basic metab olic 1999 panel - Serum or Plasm a chloride [moles/volum e] in serum or plasma 113 mmol/ L low: 98mmol /Lhigh : 107mmo l/L high Chlor moira 113 (H) 98 - 107 mmol/ L 03/17 1:59 PM [facility] Not Available Not Available 05/30/2024 11:48:13 03/17/20 24 03/17/2024 Basic metab olic 2000 panel - Serum or Plasm a carbon dioxide, total [moles/volum e] in serum or plasma 22 mmol/ L low: 22mmol /Lhigh : 29mmol /L CO2 22 22 - 29 mmol/ L 03/17 1:59 PM [facility] Not Available Not Available 05/30/2024 11:48:13 03/17/20 24 03/17/2024 Basic metab olic 2000 panel - Serum or Plasm a glucose [mass/volume ] in serum or plasma 92 mg/dL low: 70mg/d Lhigh: 99mg/d L Gluco se 92 70 - 99 mg/dL 03/17 1:59 PM [facility] Not Available Not Available 05/30/2024 11:48:13 03/17/20 24 03/17/2024 Basic metab olic 2000 panel - Serum or Plasm a calcium [moles/volum e] in serum or plasma 9 mg/dL low: 8.4mg/ dLhigh : 10.2mg /dL Calci um 9.0 8.4 - 10.2 mg/dL 03/17 1:59 PM [facility] Not Available Not Available 05/30/2024 11:48:13 03/17/20 24 03/17/2024 Basic metab olic 2000 panel - Serum or Plasm a urea nitrogen/cre atinine [mass ratio] in serum or plasma 27 low: 7high: 23 high BUN/C reati nine Ratio 27 (H) 7 - 23 03/17 1:59 PM [facility] Not Available Not Available 05/30/2024 11:48:13 03/17/20 24 03/17/2024 Basic metab olic 2000 panel - Serum or Plasm a osmolality calculated 293 text: 275 - 295 mOsm/k g Osmol irene Genaou lated 293 275 - 295 mOsm/ kg 03/17 1:59 PM [facility] Not Available Not Available 05/30/2024 11:48:13 03/17/20 24 03/17/2024 Basic metab olic 1999 panel - Serum or Plasm a glomerular filtration rate/1.73 sq M.predicted [volume rate/area] in serum, plasma or blood by creatinine-b ased formula (CKD-epi 2020) text: >=90 mL/min /1.73 m2 eGFR by CKD-E PI >90 >=90 mL/mi n/1.7 3 m2 03/17 1:59 PM [facility] Not Available Not Available 05/30/2024 11:48:13 03/17/2003/17/2024 Basic metab olic 1999 panel - Serum or Plasm a interpretati on and review of laboratory results Abnorm al Not Available Not Available 11:48:13 02/08/2002/06/2024 XR, knee, 3 view No observ ation record ed. [facility] [address] [facility] [place], [address], 02/14/2024 17:47:37 Result Notes None recorded. 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 Procedures Surgical History Date Name Laterality Status Provider Name and Address Organization Details Recorded Time 03/17/20 24 maintenance of neurostimulator in cranial nerve completed ZHAO Lugo - [facility] 03/18/2024 09:35:32 01/25/20 21 cataract surgery completed ZHAO Lugo - [facility] 02/21/2021 12:26:25 07/18/19 19 Date of Last Pap Smear completed Davina Tobar [facility] 07/29/2018 10:28:05 04/17/19 13 Tubal Ligation completed Donavon Mccarty RN PA - [facility] 07/17/2018 11:10:58 03/14/20 01 cholecystectomy completed Donavon Mccarty RN [facility] 07/17/2018 11:10:29 foot repair completed Edita Lo MA PA - [facility] 12/20/2022 12:02:25 Imaging Results Imaging Date Name Status LastModified by Organiz ation Details LastModified Time 02/06/2024 XR, knee, 3 view completed [facility] [address] [place], [id number], 02/14/2024 17:47:37 Procedure Notes None recorded. Medical Equipment None Reported. Allergies Allergen ID Allergen Name Allergen Category Reaction Reaction Severity Criticality Documentation Date Start Date Code Code System Note Provider Name and Address Organization Details Recorded Time 975871 latex environme nt,medica tion Not available Not available Not available 01/09/2018 00938 91 RxNorm Not Available Not Available Not Available [id number] Keppra medicatio n hives severe Not available 08/21/2018 66665 7 RxNorm Not Available Not Available Not Available 848301 Tylenol medicatio n Not available Not available Not available 05/08/2023 26730 3 RxNorm hurts her stoma ch Not Available Not Available Not Available 9734 codeine medicatio n Not available Not available Not available 03/25/2014 2670 RxNorm Not Available Not Available Not Available 9735 naproxen medicatio n Not available Not available Not available 03/25/2014 7258 RxNorm Not Available Not Available Not Available 9736 caffeine food,medi cation Not available Not available Not available 03/25/2014 1886 RxNorm Not Available Not Available Not Available 9737 cyclobenz aprine medicatio n Not available Not available Not available 03/25/2014 88575 RxNorm Not Available Not Available Not Available Medications Name Sig Start Date Stop Date Status Note LastModified by Organization Details LastModified Time Prescript ion - Prior Authoriza tion Request active Not Available Not Available Not Available amoxicill in 500 mg capsule active Not Available Not Available Not Available methocarb gerhard 500 mg tablet Take 1 tablet 3 times a day by oral route for 30 days. active Not Available Not Available No t Available promethaz ine-DM 6.25 mg-15 mg/5 mL oral syrup Take 5 mL 4 times a day by oral route as needed. 12/25 completed Not Available Not Available Not Available neomycin- polymyxin -hydrocor t 3.5 mg/mL-10, 000 unit/mL-1 % ear solution active Not Available Not Available Not Available Suphedrin 30 mg tablet Take 2 tablets 3 times a day by oral route as needed. 11/26 completed Not Available Not Available Not Available venlafaxi ne ER 37.5 mg capsule,e xtended release 24 hr 06/20 completed Not Available Not Available Not Available venlafaxi ne ER 75 mg capsule,e xtended release 24 hr 06/20 completed Not Available Not Available Not Available tizanidin e 2 mg tablet TAKE 3 TABLETS 6 MG BY MOUTH THREE TIMES DAILY FOR 30 DAYS 08/21 completed Not Available Not Available Not Available citalopra m 40 mg tablet Take 1 tablet every day by oral route for 90 days. active Not Available Not Available No t Available trazodone 50 mg tablet TAKE ONE TABLET BY MOUTH AT BEDTIME NEEDED 12/20 completed Not Available Not Available Not Available cetirizin e 10 mg tablet Take 0.5 tablets twice a day by oral route. 01/19 completed pt taking claritin Not Available Not Available Not Available azithromy derick 250 mg tablet TAKE 2 TABLETS (500 MG) BY ORAL ROUTE ONCE DAILY FOR 1 DAY THEN 1 TABLET (250 MG) BY ORAL ROUTE ONCE DAILY FOR 4 DAYS 08/30 completed Not Available Not Available Not Available amitripty line 75 mg tablet 01/12 completed Not Available Not Available Not Available ofloxacin 0.3 % eye drops INSTILL 1 DROP INTO AFFECTED EYE THREE TIMES A DAY TO BEGIN USE 2 DAYS BEFORE SURGERY 01/12 completed Not Available Not Available Not Available tizanidin e 4 mg tablet TAKE 1 TABLET(S ) EVERY 8 HOURS BY ORAL ROUTE FOR 30 DAYS. 03/12 completed Not Available Not Available Not Available levetirac etam 500 mg tablet active Not Available Not Available No t Available ranitidin e 300 mg tablet TAKE 1 TABLET(S ) EVERY DAY BY ORAL ROUTE. 05/29 completed pharmacy notified Not Available Not Available Not Available sumatript an 100 mg tablet TAKE 1 TABLET (100 MG TOTAL) BY MOUTH ONCE NEEDED FOR MIGRAINE active Not Available Not Available No t Available hydrocodo ne 5 mg-acetam inophen 325 mg tablet 04/22 completed Not Available Not Available Not Available ondansetr on HCl 8 mg tablet TAKE 1 TABLET TWICE a DAY BY MOUTH NEEDED. 2024 active Not Available Not Available Not Avai lable ondansetr on HCl 4 mg tablet take 1-2 tablets BID prn severe nausea 06/18 completed Not Available Not Available Not Available prednison e 20 mg tablet 04/21 completed Not Available Not Available Not Available sertralin e 100 mg tablet 11/26 completed Pt states not taking Not Available Not Available Not Available hydroxyzi ne pamoate 50 mg capsule Take 1 capsule 3 times a day by oral route as needed for 90 days. active Not Available Not Available No t Available Tylenol Arthritis Pain 650 mg tablet,ex tended release Take 2 tablets every 8 hours by oral route as needed for 30 days. 07/27 completed Not Available Not Available Not Available topiramat e 25 mg tablet active Not Available Not Available Not Available metronida zole 500 mg tablet active Not Available Not Available No t Available ciproflox acin 250 mg tablet Take 1 tablet every 12 hours by oral route for 5 days. 03/12 completed Not Available Not Available Not Available sulfameth oxazole 800 mg-trimet hoprim 160 mg tablet Take 1 tablet every 12 hours by oral route for 5 days. 11/26 completed Pt states not taking Not Available Not Available Not Available tramadol 50 mg tablet active Not Available Not Available Not Available amitripty line 50 mg tablet 11/14 completed increase d by Dr. Al Not Available Not Available Not Available amoxicill in 500 mg tablet Take 1 tablet 3 times a day by oral route. 2014 active Not Available Not Available Not Avai lable lamotrigi ne 25 mg tablet active Not Available Not Available Not Available ketorolac 10 mg tablet 06/18 completed Not Available Not Available Not Available pantopraz ole 20 mg tablet,de layed release Take 1 tablet every day by oral route for 90 days. active Not Available Not Available No t Available ketorolac 0.5 % eye drops INSTILL 1 DROP INTO AFFECTED EYE FOUR TIMES A DAY BEGIN USE 2 DAYS BEFORE SURGERY 01/12 completed Not Available Not Available Not Available zonisamid e 100 mg capsule TAKE 4 CAPSULES (400 MG TOTAL) BY MOUTH NIGHTLY active Not Available Not Available No t Available meloxicam 7.5 mg tablet TAKE ONE (1) TABLET EVERY DAY BY ORAL ROUTE BEFORE MEALS FOR 30 DAYS. 01/19 completed pt not taking Not Available Not Available Not Available oxycodone -acetamin ophen 5 mg-325 mg tablet active Not Available Not Available Not Available propranol ol 10 mg tablet Take 1 tablet twice a day by oral route for 30 days. 04/22 completed Not Available Not Available Not Available famotidin e 20 mg tablet Take one tablet in the morning and one tablet in the evening by oral route 06/20 completed Not Available Not Available Not Available amitripty line 25 mg tablet 06/18 completed Not Available Not Available Not Available prednisol one acetate 1 % eye drops,venu pension INSTILL 1 DROP INTO SURGICAL EYE 3 TIMES PER DAY STARTING AFTER SURGERY 01/12 completed Not Available Not Available Not Available lorazepam 0.5 mg tablet 11/28 completed Not Available Not Available Not Available levetirac etam 250 mg tablet active Not Available Not Available No t Available trazodone 100 mg tablet 06/18 completed Not Available Not Available Not Available dicyclomi ne 20 mg tablet 12/20 completed Not Available Not Available Not Available amitripty line 10 mg tablet 11/28 completed Not Available Not Available Not Available meclizine 25 mg tablet 04/21 completed Not Available Not Available Not Available phenazopy ridine 100 mg tablet active Not Available Not Available Not Available baclofen 10 mg tablet TAKE 1 TABLET(S ) TWICE A DAY BY ORAL ROUTE NEEDED FOR 30 DAYS. active Not Available Not Available No t Available doxycycli ne monohydra te 100 mg capsule active Not Available Not Available Not Available cephalexi n 500 mg capsule TAKE 1 CAPSULE EVERY 12 HOURS FOR 3 DAYS 06/18 completed Not Available Not Available Not Available trazodone 150 mg tablet 06/18 completed Not Available Not Available Not Available oseltamiv ir 75 mg capsule 09/07 completed Not Available Not Available Not Available buspirone 30 mg tablet 12/18 completed Not Available Not Available Not Available dexametha sone 4 mg tablet 06/20 completed Not Available Not Available Not Available carbamaze pine 100 mg chewable tablet TAKE 3 TABLETS (300 MG TOTAL) BY MOUTH 2 (TWO) TIMES A DAY WITH LUNCH AND DINNER active Not Available Not Available No t Available promethaz ine 25 mg tablet active Not Available Not Available Not Available indometha derick 25 mg capsule active Not Available Not Available Not Available ibuprofen 400 mg tablet TAKE ONE TABLET BY MOUTH THREE TIMES a DAY NEEDED FOR PAIN 12/25 completed Not Available Not Available Not Available orphenadr ine citrate ER 100 mg tablet,ex tended release TAKE ONE TABLET BY MOUTH TWICE DAILY FOR 30 DAYS active Not Available Not Available No t Available triamcino lone acetonide 0.025 % topical ointment active Not Available Not Available Not Available buspirone 7.5 mg tablet Take 1 tablet twice a day by oral route as needed for 30 days. 12/20 completed Not Available Not Available Not Available omeprazol e 20 mg capsule,d elayed release TAKE ONE CAPSULE BY MOUTH EVERY DAY 06/20 completed Not Available Not Available Not Available Banophen 25 mg capsule active Not Available Not Available Not Available folic acid 1 mg tablet active Not Available Not Available Not Available hydrocort isone 2.5 % topical cream 06/18 completed Not Available Not Available Not Available monteluka st 10 mg tablet TAKE ONE TABLET BY MOUTH DAILY 04/22 completed Not Available Not Available Not Available hydroxyzi ne HCl 25 mg tablet Take 1 tablet 3 times a day by oral route as needed pruritis for 10 days. 07/17 completed Not Available Not Available Not Available levetirac etam 750 mg tablet active Not Available Not Available No t Available mupirocin 2 % topical ointment 01/09 completed Not Available Not Available Not Available ergocalci ferol (vitamin D2) 1,250 mcg (50,000 unit) capsule TAKE 1 CAPSULE EVERY WEEK BY ORAL ROUTE. active Not Available Not Available No t Available lorazepam 1 mg tablet TAKE ONE-HALF TABLET BY MOUTH EVERY 8 HOURS NEEDED ANXIETY 01/12 completed Not Available Not Available Not Available Cranberry Concentra te 500 mg capsule Take 1 capsule every day by oral route. 2023 active Not Available Not Available Not Avai lable ibuprofen 600 mg tablet Take 1 tablet 3 times a day by oral route with meals for 14 days. 04/05 completed Not Available Not Available Not Available polyethyl simran glycol 3350 17 gram/dose oral powder 06/18 completed Not Available Not Available Not Available methylpre dnisolone 4 mg tablets in a dose pack Take as directed 04/21 completed Not Available Not Available Not Available propranol ol 20 mg tablet 12/18 completed pharmacy notified Not Available Not Available Not Available ondansetr on 4 mg disintegr ating tablet Take 1 tablet by oral route as needed. 11/23 completed duplicat e Not Available Not Available Not Available topiramat e 100 mg tablet 07/17 completed Not Available Not Available Not Available fluticaso ne propionat e 50 mcg/actua tion nasal spray,venu pension Inhale 2 sprays every day by intranas al route for 30 days. 01/09 completed Not Available Not Available Not Available sertralin e 50 mg tablet 11/28 completed Not Available Not Available Not Available naratript an 1 mg tablet active Not Available Not Available Not Available lamotrigi ne 100 mg tablet 11/28 completed Not Available Not Available Not Available loratadin e 10 mg tablet TAKE ONE TABLET BY MOUTH EVERY DAY 2024 active Not Available Not Available Not Avai lable metoclopr amide 10 mg tablet 06/20 completed Not Available Not Available Not Available buspirone 15 mg tablet TAKE ONE TABLET BY MOUTH THREE TIMES A DAY active Not Available Not Available No t Available oxycodone 5 mg tablet 12/20 completed Not Available Not Available Not Available hydroxyzi ne pamoate 25 mg capsule TAKE 1 CAPSULE 3 TIMES A DAY BY ORAL ROUTE NEEDED FOR 30 DAYS. 03/16 completed Not Available Not Available Not Available neomycin 3.5 mg/g-poly myxin B 10,000 unit/g-de xameth 0.1 % eye oint active Not Available Not Available Not Available escitalop ernesto 10 mg tablet 12/18 completed Not Available Not Available Not Available escitalop ernesto 20 mg tablet 04/05 completed Not Available Not Available Not Available rosuvasta tin 10 mg tablet Take 1 tablet every day by oral route for 90 days. active Not Available Not Available No t Available topiramat e 50 mg tablet active Not Available Not Available Not Available nitrofura ntoin monohydra te/macroc rystals 100 mg capsule TAKE 1 CAPSULE( S) TWICE A DAY BY ORAL ROUTE FOR 7 DAYS. 06/26 completed Not Available Not Available Not Available tizanidin e 6 mg capsule Take 1 capsule 3 times a day by oral route for 30 days. 03/14 completed Not Available Not Available Not Available tizanidin e 2 mg capsule take 3 capsules 6 mg by mouth three times daily for 30 days 08/21 completed Not Available Not Available Not Available tizanidin e 4 mg capsule Take 1 capsule 3 times a day by oral route for 30 days. 2015 active Not Available Not Available Not Avai lable Claritin 06/20 completed Not Available Not Available Not Available levetirac etam 1,000 mg tablet active Not Available Not Available Not Available FeroSul 325 mg (65 mg iron) tablet TAKE 1 TABLET EVERY DAY BY ORAL ROUTE. 2023 active Not Available Not Available Not Avai lable oxycodone 10 mg tablet 12/20 completed Not Available Not Available Not Available lidocaine 5 % topical ointment APPLY TO AFFECTED AREA(S) BY TOPICAL ROUTE 1-4 TIMES DAILY NEEDED active Not Available Not Available No t Available topiramat e XR 200 mg capsule,e xtended release 24 hr TAKE ONE CAPSULE BY MOUTH TWICE DAILY active Not Available Not Available No t Available naloxone 4 mg/actuat ion nasal spray 12/25 completed Not Available Not Available Not Available Afluria Quad 0313-8040 (PF) 60 mcg/0.5 mL intramusc ular syringe 04/11 completed Not Available Not Available Not Available Emgality Pen 120 mg/mL subcutane ous pen injector INJECT 120 MG UNDER THE SKIN EVERY 30 (THIRTY) DAYS 08/31 completed Not Available Not Available Not Available Afluria Qd 2018- (36 mos up)(PF)60 mcg (15 mcg x4)/0.5 mL IM syringe 05/29 completed Not Available Not Available Not Available Nayzilam 5 mg/spray (0.1 mL) nasal spray ADMINIST ER 1 SPRAY IN ONE NOSTRIL NEEDED FOR BREAKTHR OUGH SEIZURES . USE ALTERNAT ALON NOSTRIL IF SECOND SPRAY IS NEEDED. active Not Available Not Available No t Available Flucelvax Quad (PF) 60 mcg (15 mcg x 4)/0.5 mL IM syringe 12/29 completed Not Available Not Available Not Available Vitals Date Recorded Body height Body mass index (BMI) Body weight Body temperature Respiratory rate Oxygen saturation Oxygen saturation in Arterial blood by Pulse oximetry Heart rate Systolic blood pressure Diastolic blood pressure Provider Name and Address Organization Details Last Updated DateTime 3 149.86 cm 21.9 kg/m2 30981.1 3 g 98.7 [degF] 16 /min 98 % 98 % 90 /min 114 mm[Hg] 78 mm[Hg] Kallie Pineda [place] - [facility] 3 11:49:33 Date Recorded Body height Body mass index (BMI) Body weight Oxygen saturation Oxygen saturation in Arterial blood by Pulse oximetry Heart rate Respiratory rate Body temperature Systolic blood pressure Diastolic blood pressure Provider Name and Address Organization Details Last Updated DateTime 3 149.86 cm 22.5 kg/m2 23538.5 5 g 99 % 99 % 104 /min 16 /min 97.3 [degF] 128 mm[Hg] 76 mm[Hg] Edita Lo MA [place] - [facility] 3 11:53:58 Date Recorded Body height Body mass index (BMI) Body weight Body temperature Respiratory rate Oxygen saturation Oxygen saturation in Arterial blood by Pulse oximetry Heart rate Systolic blood pressure Diastolic blood pressure Provider Name and Address Organization Details Last Updated DateTime 4 149.86 cm 24.5 kg/m2 21058.3 8 g 98.6 [degF] 16 /min 99 % 99 % 82 /min 112 mm[Hg] 78 mm[Hg] Kallie Pineda [place] - [facility] 12:32:53 Date Recorded Body height Body mass index (BMI) Body weight Oxygen saturation Oxygen saturation in Arterial blood by Pulse oximetry Heart rate Respiratory rate Body temperature Systolic blood pressure Diastolic blood pressure Provider Name and Address Organization Details Last Updated DateTime 4 149.86 cm 22.3 kg/m2 00245.9 6 g 99 % 99 % 99 /min 16 /min 96.9 [degF] 112 mm[Hg] 81 mm[Hg] Edita Lo MA [facility] 4 11:06:35 Date Recorded Body height Body mass index (BMI) Body weight Respiratory rate Body temperature Heart rate Oxygen saturation Oxygen saturation in Arterial blood by Pulse oximetry Systolic blood pressure Diastolic blood pressure Provider Name and Address Organization Details Last Updated DateTime 4 149.86 cm 21.2 kg/m2 82836.5 5 g 16 /min 98.4 [degF] 83 /min 98 % 98 % 110 mm[Hg] 77 mm[Hg] Kallie Pineda MA [facility] 4 11:17:08 Social History Question Answer Notes LastModified by Organizat ion Details LastModified Time Tobacco Smoking Status Never Smoker Kalpana Carpio MA [facility] 03/25/2014 11:30:00 Do You Have An Advance Directive? No [email or web address] Information not available 07/17/2018 What Is Your Level Of Alcohol Consumption? None [email or web address] Information not available 07/17/2018 Are You Blind Or Do You Have Difficulty Seeing? Yes Glasses / Cataract In Both Eyes Information not available 07/27/2020 Is Blood Transfusion Acceptable In An Emergency? Yes [email or web address] Information not available 07/17/2018 What Is Your Level Of Caffeine Consumption? None Information not available 07/17/2018 How Much Tobacco Do You Chew? None [email or web address] Information not available 07/17/2018 In The 14 Days Before Symptom Onset, Have You Had Close Contact With A Laboratory-confi rmed COVID-19 While That Case Was Ill? No Information not available 07/27/2020 In The 14 Days Before Symptom Onset, Have You Had Close Contact With A Person Who Is Under Investigation For COVID-19 While That Person Was Ill? No Information not available 07/27/2020 Have You Been To An Area Known To Be High Risk For COVID-19? No Information not available 07/27/2020 Are You Currently Employed? No [email or web address] Information not available 07/17/2018 Are You Deaf Or Do You Have Serious Difficulty Hearing? No Information not available 07/27/2020 What Type Of Diet Are You Following? REGULAR [email or web address] Information not available 07/17/2018 Which Illicit Or Recreational Drugs Have You Used? Denies [email or web address] Information not available 07/17/2018 Do You Or Have You Ever Used E-cigarettes Or Vape? Never Used Electronic Cigarettes Information not available 05/29/2019 Education 2 Year College [email or web address] Information not available 07/17/2018 What Is Your Occupation? Disability [email or web address] Information not available 07/17/2018 Are There Any Guns Present In Your Home? No Information not available 07/27/2020 Live Alone Or With Others? With Others [email or web address] Information not available 07/17/2018 What Was The Date Of Your Most Recent Tobacco Screening? 12/24/2023 Information not available 12/24/2023 How Many Children Do You Have? 1 [email or web address] Information not available 07/17/2018 Performs Monthly Self-breast Exam? Yes [email or web address] Information not available 07/17/2018 Do You Use Protection During Sex? No [email or web address] Information not available 07/17/2018 What Is Your Relationship Status? Information not available 12/24/2023 Do You Use Your Seat Belt Or Car Seat Routinely? Yes Information not available 07/27/2020 Seat Belts Used Routinely Yes Information not available 07/17/2018 Are You Sexually Active? Yes [email or web address] Information not available 07/17/2018 Do You Have Smoke And Carbon Monoxide Detectors In Your Home? Yes Information not available 07/27/2020 Are You Passively Exposed To Smoke? No Information not available 07/27/2020 Do You Or Have You Ever Used Smokeless Tobacco? Never Used Smokeless Tobacco Information not available 05/29/2019 How Much Tobacco Do You Smoke? No Information not available 05/29/2019 General Stress Level Medium [email or web address] Information not available 07/17/2018 Do You Feel Stressed (tense, Restless, Nervous, Or Anxious, Or Unable To Sleep At Night)? [id number] Information not available 07/27/2020 Do You Use Any Illicit Or Recreational Drugs? No Information not available 07/27/2020 Do You Use Sunscreen Routinely? Yes [email or web address] Information not available 07/17/2018 Has Tobacco Cessation Counseling Been Provided? No Information not available 01/12/2022 On What Date Was Tobacco Cessation Counseling Provided? 12/24/2023 Information not available 12/24/2023 How Many Years Have You Smoked Tobacco? 0 Information not available 05/29/2019 Do You Or Have You Ever Used Any Other Forms Of Tobacco Or Nicotine? No Information not available 07/27/2020 Sex: Female Functional Status Question Answer Note LastModified by Organization D etails LastModified Time Are you able to care for yourself? Yes Information not available 07/27/2020 What is your exercise level? Moderate [email or web address] Information not available 07/17/2018 Mental Status None recorded. Family History Relationship Description Onset Age of this Age Resolved Age Notes LastModified by Organization Details LastModified Time Mother Malignant tumor of breast 30 [email or web address] Not available 07/17 11:08:37 Mother Malignant neoplasm of urinary bladder 63 Stage III [email or web address] Not available 07/17/2018 11:36:14 Mother Diabetes mellitus [email or web address] Not available 07/08 11:37:50 Mother July 2018 [email or web address] Not available 08/21/2018 10:26:13 Father Malignant mesothelioma of pleura Worked at [employer] [email or web address] Not available 07/17/2018 11:37:19 Father Glaucoma [email or web address] Not available 08/31/2022 11:47:00 Maternal Aunt Diabetes mellitus Not available 07/08 11:37:50 Maternal Aunt Malignant neoplasm of lung 64 [email or web address] Not available 12/29 12:40:46 Maternal Aunt Diabetes mellitus [email or web address] Not available 02/21 12:29:53 Maternal Aunt Malignant neoplasm of brain [email or web address] Not available 01/12 10:25:04 Maternal Aunt 68 stage 2 brain cancer [email or web address] Not available 04/05/2022 10:56:41 Paternal Uncle 72 covd [email or web address] Not available 021 12:40:14 Notes:no new reported 1, 12/29/20, 02/21/21, 08/31/22, 12/20/22, 06/19/23, 08/22/23, 12/24/23 Medical History Condition Response Breast Problem Y Seizures/Epilepsy Y Infertility Y High Cholesterol Y Headaches/Migraines Y Headaches Y Stroke Y Gynecological History Statement/Question Response Abnormal Pap N Flow Heavy STIs/STDs N HPV Vaccine N Duration of Flow (days) 4 Most Recent Mammogram Age at Menarche 11 Current Control Method Tubal Ligat ion Age at First Child 36 Frequency of Cycle (Q days) 30 Sexually Active? Y Menses Monthly Y Date of Last Pap Smear 07/17/2018 Sexual Problems? N LMP Definite Obstetrics History GPAL:G 1 P 1 0 0 1 Type Value Full Term 1 Living 1 Total 1 Immunizations Vaccine Type Date Status Note Provider Nam e and Address Organization Details Recorded Time Influenza, split virus, quadrivalent, preservative 9 completed Veena Medeiros LPN [place], [place] [facility] 01/28/2019 17:07:37 Influenza, split virus, quadrivalent, preservative 0 completed ALEXA Terrell [place], [place] [facility] 01/12/2020 11:49:23 SARS-COV-2 (COVID-19) vaccine, UNSPECIFIED 1 completed Edita Lo [place], [place] [facility] 07/27/2020 11:32:51 COVID-19, mRNA, LNP-S, PF, 100 mcg/0.5mL dose or 50 mcg/0.25mL dose 1 completed Edita Lo [place], [place] [facility] 02/21/2021 12:24:11 Influenza, split virus, quadrivalent, preservative 6 completed Not Available [facility] 04/26/2019 02:32:32 Pneumococcal conjugate PCV 13 7 completed Not Available [facility] 04/26/2019 02:34:48 Influenza, split virus, quadrivalent, PF 8 completed Not Available [facility] 04/26/2019 02:36:24 COVID-19, mRNA, LNP-S, PF, 100 mcg/0.5mL dose or 50 mcg/0.25mL dose 2 completed Kassi Patrick Isr[place], [place] [facility] 04/26/2021 10:57:26 Influenza, split virus, quadrivalent, PF 2 completed Alf Madden MD Attn: [address] [place], [address], [place] [facility] 01/16/2022 22:43:57 Pneumococcal conjugate PCV20, polysaccharide DUM003 conjugate, adjuvant, PF 2 completed Alf Madden MD Attn: [address] [place], [address], [place] [facility] 01/16/2022 22:43:57 Influenza, split virus, trivalent, PF 4 completed Cynthia Emerson RN [place], [place] [facility] 12/25/2023 10:06:33 Influenza, split virus, quadrivalent, preservative 7 completed Davina [place] [facility] 07/17/2018 10:57:46 Tdap 8 completed Dav[place] [facility] 07/17/2018 10:57:46 Past Encounters Encounter ID Performer Location Encounter Start Date Encounter Closed Date Diagnosis/Indication Diagnosis SNOMED-CT Code Diagnosis ICD10 Code Diagnosis Note [id number] [facility] [address] [place] [address] 44643-982 1 03/25/2014 10:58:19 03/29/2014 23:07:13 [id number] MD [facility] [address] [place] [address] 30154-228 1 04/08/2014 09:55:24 04/08/2014 11:50:03 Gastroesophageal reflux disease [id number] Stop the indomethac in! Pruritic disorder 209327685 Low back pain 786166817 [id number] [facility] [address] [place] [address] 38332-121 1 05/19/2014 09:39:25 05/19/2014 13:02:38 Low back pain 793027853 [id number] Alf Madden MD [place] [address] [place] [address] 37668-519 1 08/04/2014 10:01:13 08/04/2014 13:07:21 Gastroesophageal reflux disease 160993649 Stop the indomethac in! [id number] Alf Madden MD [place] [address] [place] [address] 73528-543 1 09/21/2014 10:51:31 09/22/2014 10:40:43 Allergic rhinitis 28441571 [id number] Minerva Dorsey MA [place] [address] [place] [address] 03659-306 1 11/25/2014 10:34:29 11/25/2014 17:54:40 Disorder of wrist 921202972 [id number] Kalpana Carpio MA [place] [address] [place] [address] 95193-784 1 12/07/2014 10:41:18 12/08/2014 08:01:33 Dehydration 00087296 [id number] Kalpana Carpio MA [place] [address] [place] [address] 10123-943 1 12/16/2014 10:06:50 12/17/2014 08:06:13 Dehydration [id number] [facility] [id number] Alf Madden MD [place] [address] [place] [address] 89744-104 1 02/24/2015 10:54:17 02/24/2015 15:38:49 Pain of shoulder region 91499931 M25.511 Foot pain 26874770 M79.6 71 [id number] MD James Meehan [place] [address] [place] [address] 05095-956 1 04/14/2015 10:19:36 04/15/2015 08:09:46 Epilepsy 21461672 G40.909 Foot pain 77618879 M79.6 [id number] Alf Madden MD [place] [address] [place] [address] 41005-913 1 06/25/2015 10:16:11 06/25/2015 11:24:19 Urinary symptoms 750971721 R39.9 [id number] Alf Madden MD [place] [address] [place] [address] 83543-904 1 07/14/2015 10:09:32 07/14/2015 13:14:52 Low back pain 041846706 M54.5 [id number] Alf Madden MD [place] [address] [place] [address] 86149-722 1 08/17/2015 09:57:48 08/17/2015 15:16:59 History of fall 917870850 Z91.81 Epilepsy 08605934 G40.90 9 Low back pain 436968021 M54.5 [id number] Alf Madden MD [place] [address] [place] [address] 74013-206 1 10/13/2015 10:21:56 10/13/2015 18:27:09 Epilepsy 20752336 G40.909 Gastroesop hageal reflux disease 772412857 K21.9 Stop the indomethac in! Fall W19.XXXA Low back pain 691502918 M54.5 [id number] Alf Madden MD [place] [address] [place] [address] 37803-784 1 10/26/2015 14:23:59 10/29/2015 10:30:41 Otitis externa 2323776 H60.93 Rx of cortispori n otic solution has been written. Pain of sh oulder region 53150962 M25.511 [id number] Alf Madden MD [place] [address] [place] [address] 41490-164 1 11/18/2015 15:53:32 11/19/2015 09:59:20 Eruption 233425177 R21 Allergic reaction 462970 005 T78.40XD [id number] Alf Madden MD [place] [address] [place] [address] 47373-838 1 12/01/2015 14:39:15 12/02/2015 11:33:01 Pain of shoulder region 46526512 M25.511 Allergic reaction 016808 005 T78.40XD Pt describes recurrent hives--is unsure what element is causing it. [id number] Alf Madden MD [place] [address] [place] [address] 46020-203 1 01/06/2016 14:40:22 01/07/2016 12:10:25 Needs influenza immunization 920285706 Z23 [facility] 51809928 R53.83 [id number] MD James Meehan [place] [address] [place] [address] 92021-811 1 03/09/2016 10:24:25 03/09/2016 17:43:48 Arthritis 5467030 M19.90 [id number] MD James Meehan [place] [address] [place] [address] 17335-363 1 11/28/2016 10:23:26 12/04/2016 11:02:23 Seizure disorder 837592729 G40.909 Adult heal th examination 855674195 Z00.00 Hearing loss 08985167 H9 1.91 [id number] Alf Madden MD [place] [address] [place] [address] 12306-847 1 03/02/2017 10:41:39 03/02/2017 16:32:53 Administration of pneumococcal vaccine 90140960 Z23 [id number] MD James Meehan [place] [address] [place] [address] 91272-251 1 03/22/2017 15:45:00 03/23/2017 17:00:14 Pain in left knee 5237206909 77826 M25.195 [id number] MD James Meehan [place] [address] [place] [address] 52812-725 1 06/18/2017 14:36:10 06/19/2017 11:58:25 Pain in left knee 5064526667 80860 M25.994 [id number] MD Mono Meehan 14 IM [address] [facility] [place] [address] 08/30/2017 10:39:10 08/31/2017 16:33:13 Simple laceration of chin 431242066 S01.81XA [id number] MD Mono Meehan 14 IM [address] [facility] [place] [address] 1 11/14/2017 16:22:16 11/15/2017 11:40:21 Weight gain 3203919 R63.5 [id number] MD Mono Meehan 14 IM [address] [facility] [place] [address] 1 01/09/2018 11:25:57 01/14/2018 12:48:18 Pruritic disorder 402283656 L29.9 Gastroesop hageal reflux disease 421888178 K21.9 Stop the indomethac in! Needs infl uenza immunization 038779756 Z23 [id number] Alf Madden MD [place] 14 IM [address] [facility] [address] [place] [address] [place] [address] 1 04/11/2018 11:11:17 04/15/2018 09:08:51 Urinary symptoms 037958005 R39.9 Acute cystitis 87357623 N30.00 [id number] Karina Reyes (BANKRUPTCY PROCESSOR) [address] [place] [place] [address] 57[address] 4 07/17/2018 10:32:47 07/18/2018 10:53:06 Gynecologic examination 87098803 Z01.411 No result available for last pap. Pap done. Venereal d isease screening 119262987 Z11.3 RTO one week for results. Screening for malignant neoplasm of breast 530241360 Z12.31 Last mammogram 2 years ago. Mammogram ordered. Adnexal tenderness 75641 3002 R10.2 Pt. with severe ttp bilaterall y causing her to tighten her abdominal muscles. Will get US to assess uterus and ovaries. Female hirsutism 4339637 9 L68.0 Will check testostero ne. Dysmenorrhea 215657683 N 94.6 Has had cramps since getting TL. Advised Ibuprofen for pain. [id number] Karina Reyes (BANKRUPTCY PROCESSOR) [address] [place] [address] 4 07/29/2018 10:05:45 07/30/2018 10:05:03 Gynecologic examination 91481520 Z01.411 Pap done 07/17/18 was negative with negative hr-HPV, dwp. Pt. has not done mammogram or pelvic US yet. Pt. instructed to have tests done. She states she will call for an appointmen t when she gets home. Venereal d isease screening 308925558 Z11.3 Vaginal culture was negative for gonorrhea, chlamydia, and trichomona s, dwp. STD panel was also completely negative. Individual test results dwp. Female hirsutism 4968625 9 L68.0 Testostero ne and DHEA-S normal, dwp. [id number] MD Mono Meehan 14 [address] [facility] [place] [address] 1 08/21/2018 09:56:08 08/22/2018 09:40:43 Pain of ear 688896731 H92.09 [id number] MD Mono Meehan 14 [address] [facility] [place] [address] 1 09/18/2018 15:12:13 09/19/2018 16:54:01 Decreased hearing 724599365 H91.92 Complicated grieving 427 671436 F43.21 [id number] MD Mono Meehan 14 [address] [facility] [place] [address] 11/26/2018 10:55:43 11/28/2018 09:20:42 Gastroesophageal reflux disease 403443036 K21.9 Low back pain 052591795 M54.5 OTC arthritis- strength Tylenol. [id number] MD Mono Meehan [address] [facility] [place] [address] 1 12/18/2018 09:41:20 12/19/2018 12:10:29 Epilepsy 77459797 G40.909 to see neurologis t soon Nausea and vomiting 1693 2000 R11.2 Migraine 69475089 G43.90 9 [id number] MD Mono Meehan 14 [address] [facility] [place] [address] 05/29/2019 10:53:57 06/02/2019 14:01:44 Epilepsy 19144616 G40.909 most recent seizure was May 26, 2019--pt continues under neurology care Pain in left foot 233972 8663 02300 M79.223 [id number] MD Mono Meehan 14 [address] [facility] [place] [address] 1 07/02/2019 08:34:37 07/04/2019 09:44:32 Epilepsy 75284854 G40.909 Seasonal a llergic rhinitis 963878329 J30.2 Low back pain 398576218 M54.5 Pt has been taking OTC arthritis- strength Tylenol. [id number] MD Mono Meehan 14 [address] [facility] [place] [address] 08/29/2019 09:19:18 09/02/2019 14:10:09 Nausea and vomiting 62589701 R11.2 Low back pain 188368459 M54.5 [id number] MD Mono Meehan 14 IM [address] [facility] [place] [address] 1 11/24/2019 09:03:14 11/26/2019 21:09:54 Allergic urticaria 16106434 L50.0 [id number] MD Mono Meehan 14 IM [address] [facility] [place] [address] 1 01/02/2020 13:11:44 01/06/2020 09:46:44 Feeling suicidal 124798097 R45.851 now resolved [id number] MD Mono Meehan 14 IM [address] [facility] [place] [address] 1 04/22/2020 13:37:17 04/27/2020 14:26:45 Nausea and vomiting 28330993 R11.2 Under care of neurologist 526987118 Z76.[address] Medina Atypical chest pain 1025 72599 R07.89 pain is describe as sharp with certain movements. ..may be related to position of the VNS Vagal nerv e stimulator in situ 238154313 Z96.82 [id number] MD Mono Meehan 14 IM [address] [facility] [place] [address] 07/27/2020 11:22:08 07/29/2020 13:23:17 Low back pain 990565517 M54.5 [id number] MD Mono Meehan 14 IM [address] [facility] [place] [address] 09/16/2020 10:19:41 09/20/2020 12:35:28 History of attempted suicide 901236118 Z91.5 Marital conflict 4341638 0 Z63.0 [id number] MD Mono Meehan 14 IM [address] [facility] [place] [address] 12/29/2020 12:17:39 01/03/2021 12:33:12 Overweight 398882841 E66.3 Pre-surger y evaluation 389439587 Z01.818 Family problems 53903767 4 Z63.79 [id number] MD Mono Meehan 14 IM [address] [facility] [place] [address] 02/21/2021 12:04:51 02/22/2021 22:31:24 Seizure disorder 135671275 G40.909 Panic attack 216764922 F 41.0 Adult heal th examination 748499838 Z00.00 Family dis ruption with separation 7761044 Z63.5 [id number] SIA Collins 14 IM [address] [facility] [place] [address] 04/22/2021 11:50:09 04/26/2021 12:48:33 Administration of SARS-CoV-2 mRNA vaccine 7789171206 Z23 [id number] MD Mono Meehan 14 [address] [facility] [place] [address] 1 08/10/2021 10:48:59 08/12/2021 12:35:03 Low back pain 068496865 M54.50 Under care of psychiatrist 536312088 Z76.89 [id number] MD Mono Meehan 14 [address] [facility] [place] [address] 01/12/2022 09:57:42 01/17/2022 13:18:54 Low back pain 538384390 M54.50 Overweight 420064839 E66 .3 Influenza immunization advised 751529762 Z71.85 Depressive disorder 3548 9007 F32.A Administra tion of pneumococcal vaccine 35330387 Z23 Anxiety 39417330 F41.9 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 F41.8 Insomnia 535542552 G47.0 0 [id number] MD Mono Meehan 14 IM [address] [facility] [place] [address] 04/05/2022 10:46:07 04/07/2022 14:52:33 Adult health examination 643375261 Z00.00 Epilepsy 33043519 G40.90 9 under care of neurologis t Low back pain 210611471 M54.50 [id number] MD Mono Meehan 14 IM [address] [facility] [place] [address] 08/31/2022 11:21:05 09/07/2022 13:02:48 Chronic back pain 303576329 G89.29 [id number] MD Mono Meehan 14 [address] [facility] [place] [address] 12/20/2022 11:47:49 12/26/2022 13:15:11 Underweight 335057189 R63.6 Allergic reaction 519803 005 T78.40XD Pt describes recurrent hives--is unsure what element is causing it. [id number] MD Mono Meehan 14 [address] [facility] [place] [address] 1 06/19/2023 12:11:24 06/26/2023 11:47:24 Body mass index 20-24 - normal 435203784 Z68.24 Epilepsy 47210408 G40.90 9 under care of neurologis t History of urinary tract infection 6495523020 107 Z87.440 Cough 73025727 R05.9 Dyslipidemia 323261912 E 78.5 Pain of ri ght knee joint 1459844816 09074 M25.963 [id number] MD Mono Meehan [address] [facility] [place] [address] 08/22/2023 10:51:05 08/29/2023 08:22:04 Screening for malignant neoplasm of cervix 190741362 Z12.4 Gastroesop hageal reflux disease 625563800 K21.9 Anemia 590200435 D64.9 Nausea 388733360 R11.0 Gastroesop hageal reflux disease without esophagitis 577108799 K21.9 [id number] MD Mono Meehan 14 [address] [facility] [place] [address] 12/24/2023 11:08:18 12/31/2023 14:36:16 Pain of right knee joint 3288230766 80520 M25.561 Influenza immunization advised 522285985 Z71.85 Low back pain 839253776 M54.50 Mixed anxi ety and depressive disorder 461625014 F41.8 Hypercholesterolemia 136 90560 E78.00 Gastroesop hageal reflux disease 066271005 K21.9 Health Concerns Section Related Observation LastModified by Organization Detai ls LastModified Time None Recorded Concern Status LastModified by Organization Details LastModified Time None Recorded Advance Directives Directive N: Payers Encounter Date Sequence Insurance Name Policy Number Policy [place] Covered Member ID [place] Member ID Guarantor Name 08/31/[address] [facility] ON OR AFTER 10/07/20 (MEDICAID REPLACEMENT - HMO) Sweta Bolivar [id number] Sweta Smithibold 12/20/[address] [facility] ON OR AFTER 10/07/20 (MEDICAID REPLACEMENT - HMO) Sweta Seibold [id number] Sweta Seibold 06/19/[address] [facility] ON OR AFTER 10/07/20 (MEDICAID REPLACEMENT - HMO) Sweta Seibold [id number] Sweta Seibold 08/22/[address] [facility] ON OR AFTER 10/07/20 (MEDICAID REPLACEMENT - HMO) Sweta Seibold [id number] Sweta Seibold 12/24/[address] [facility] ON OR AFTER 10/07/20 (MEDICAID REPLACEMENT - HMO) Sweta Smithibyosvany [id number] Sweta Bolivar Notes Date Note Type Note Provider Name and Address Organization Details Recorded Time 08/31/2022 text/html As per intake note. Pt was accompanied by her father today. Alf Madden MD Attn: [address] [place], [address], [facility] 09/01/2022 16:21:43 12/20/2022 text/html As per intake note. Pt was accompanied by her father, with whom she lives at present. Alf Madden MD Attn: [address] [place], [address], [place] [facility] 12/24/2022 13:36:53 06/19/2023 text/html As per intake note. Pt has improved since ER visit after the seizure and dx of UTI. Alf Madden MD Attn: [address] [place], [address], [place] [facility] 06/21/2023 11:30:31 08/22/2023 text/html Per intake note. Alf leach MD Attn: [address], [place], [address], [facility] 08/26/2023 06:42:17 12/24/2023 text/html Per intake note. Alf leach MD Attn: [address], [place], [address], [facility] 12/26/2023 07:22:53 OBGyn Episode Ob Episode Information Episode Created Date Number of Fetuses Patient Bloodtype Patient rh Status Prepregnancy Weight lbs Domestic Partner Domestic Partner Phone Father Name Batter Mixer Status 07/18/19 19 1 CLOSED Fetus Data First Name Last Name Admitted to NICU Weight (g) Sex Living Outcome Pediatric Complications Fetus ID Race Codes Race Delivery Type 3316.66 4704 M Full Term [id number] Vaginal John Calculation Initial John Date Initial Exam Date Initial Exam Provider Initial Ultrasound Date Last Menstrual Period Date Ultra Sound Weeks Gestation 0 Eighteen To Twenty Week John Update Ultra Sound Date Fundal Height At Umbil Quickening Date Ultra Sound Latest Weeks Gestation Final John Confirmed By Final John Confirmed Date Final John Date Ultra Sound Latest Days Gestation 0 0 Menstrual History Last Menstrual Date Menses Monthly On Bcp Conception Prior Menses Frequency Hcg Plus Date Menarche Onset Age Delivery Information Delivery Date Delivery Type Labor Anesthesia Weeks Gestation Incision Type Labor Labor Length Hrs Delivered By Post Complications Tubal Sterilization Discharge Date Comments 2 [facility] idural 39 48 Discharge Information Feeding Method Contraceptive Method Maternal HG B and HCT Levels
--- OUTSIDE RECORDS SUMMARY | 2024-08-02 12:26 | XMS_ITS | Clinical Summary ---
Author Organization [facility] [employer] Address [address] [place] [address] Care Team Providers Care Plant Health Care Technician Name Role Phone Alf Marie MD Primary Care Provider [phone] Source Comments [facility],non-owned Affiliates and Associated Physician Practices is amultiple site organization consisting of ambulatory clinics and hospital sitesin [place], [place], [place] and [place]. This disclosure is being madepursuant to the Care Everywhere program and may not contain all information available regarding this patient. Last updated 17.[facility] [employer] Allergies Active Allergy Reactions Criticality Noted Date Comments Caffeine Other Low 12/01/2016 Codeine Unknown 03/18/2020 Cyclobenzaprine Other Low 12/01/2016 Gabapentin Unknown 01/15/2020 Latex Unknown 03/18/2020 Levetiracetam Rash Medium 12/03/2018 Naproxen Urticaria Medium 09/20/2015 Coryhaoj-Rjznjkwvxe-Rfegjexkv Unknown 2019 Ranitidine Unknown 01/15/2020 Sulfamethoxazole W-Trimethoprim Unknown 11/2019 Medications * Be aware that medications may not be up to date on this document. Alwaysverify current medications with the patient. busPIRone (BUSPAR) 7.5 MG tablet Take 1 (one) tablet by mouth 2 times daily takes 2 tablets 0 Active carBAMazepine (TEGRETOL) 100 MG chew tablet Take 1 (one) tablet by mouth 3 times daily with meals takes 3 tabs TID 0 Active diphenhydrAMIN E (RA COMPLETE ALLERGY) 25 MG tablet Take 1 (one) tablet by mouth Active escitalopram (LEXAPRO) 10 MG tablet Take 2 (two) tablets by mouth once daily Active Galcanezumab-g nlm (EMGALITY) 120 MG/ML auto-injector pen Inject 1 mL subcutaneously 0 Active loratadine (CLARITIN) 10 MG tablet Take 1 (one) tablet by mouth once daily as needed 0 Active Midazolam (NAYZILAM) 5 MG/0.1ML SOLN [place] 0.1 mL into each nostril as needed in one nostril - last used 02/13/2020 Active ondansetron, disintegrating , (ZOFRAN ODT) 4 MG tablet Take 2 (two) tablets by mouth every 12 hours as needed 9 Active sertraline (ZOLOFT) 100 MG tablet Take 1 (one) tablet by mouth once daily Active zonisamide (ZONEGRAN) 100 MG capsule Take 1 (one) capsule by mouth at bedtime takes 4 tablets 0 Active cetirizine (ZYRTEC) 10 MG tablet cetirizine 10 mg tablet Active famotidine (PEPCID) 20 MG tablet famotidine 20 mg tablet Active lamoTRIgine (LAMICTAL) 25 MG tablet Take 1 (one) tablet by mouth once daily Active montelukast (SINGULAIR) 10 MG tablet montelukast 10 mg tablet Active omeprazole (PRILOSEC) 20 MG capsule omeprazole 20 mg capsule,delayed release Active ondansetron (ZOFRAN) 8 MG tablet ondansetron HCl 8 mg tablet Active SUMAtriptan (Imitrex) 100 MG tablet Take 1 (one) tablet by mouth daily as needed - may repeat one time for Migraine No more than 2 doses in 24 hours. Active Cranberry-Ronel min C-Probiotic (AZO CRANBERRY PO) Take 1 tablet by mouth at bedtime Active hydrOXYzine pamoate (Vistaril) 50 MG capsule Take 1 (one) capsule by mouth 3 times daily as needed Active rosuvastatin (Crestor) 10 MG tablet Take 1 (one) tablet by mouth at bedtime 4 Active Cholecalcifero l (vitamin D3) 1.25 MG (84013 UT) capsule Take 1 (one) capsule by mouth every 7 days Active HYDROcodone-ac etaminophen ([place]) 5-325 MG tabletIndicati ons:Seizure disorder (HCC),S/P placement of VNS (vagus nerve stimulation) device Take 1 (one) tablet by mouth every 6 hours as needed for Pain 12 tablet 4 Active Active Problems Problem Noted Date Diagnosed Date Disorder of wrist region 03/18/2020 Fatigue 03/18/2020 Gastroesophageal reflux disease 03/18/2020 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 03/18/2020 Low back pain 03/18/2020 Epileptic seizure 03/18/2020 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 01/15/2020 Anxiety 06/23/2019 Depressive disorder 06/23/2019 Headache 06/23/2019 Hypercholesterolemia 06/23/2019 Migraine 06/23/2019 Plantar fasciitis of left foot 06/23/2019 Vertigo 04/28/2019 Immunization, tetanus-diphtheria 08/29/2017 Orthostatic lightheadedness 12/28/2016 Tinnitus, bilateral 12/28/2016 Esotropia 09/27/2015 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 Hydrocephalus 09/27/2015 Seizure disorder 04/26/2015 Overview (01/15/2020): Seizure disorder Common migraine with intractable migraine 2014 Overview (01/15/2020): Intractable chronic migraine without aura and without status migrainosus Partial epilepsy with impairment of consciousnes s 02/19/2015 Overview (01/15/2020): Partial symptomatic epilepsy with complex partial seizures, intractable, without status epilepticus Pain in female pelvis 07/03/2014 Mass of breast 03/18/2014 Cerebral palsy 10/27/2011 Battery end of life of vagus nerve stimulator Resolved Problems Problem Noted Date Diagnosed Date Resolved Date Acute cystitis 03/18/2020 03/17/2024 Allergic reaction 03/18/2020 03/17/2024 Allergic rhinitis 03/18/2020 03/17/2024 Dehydration 03/18/2020 04/01/2020 Hypokalemia 03/18/2020 03/17/2024 Infection of nose 03/18/2020 03/17/2024 Otitis externa 03/18/2020 04/29/2020 Pruritic disorder 03/18/2020 03/17/2024 Shoulder pain 03/18/2020 03/17/2024 Skin eruption 03/18/2020 03/17/2024 Symptoms involving urinary system 03/18/2020 03/17/2024 Upper respiratory infection 03/18/2020 04/01/2020 Foot pain 03/18/2020 03/17/2024 Dizziness 06/23/2019 03/17/2024 Tibialis posterior tendinitis 06/23/2019 03/17/2024 Chin laceration 08/29/2017 03/17/2024 Pain of foot 08/24/2015 03/17/2024 09/19/2011 03/17/2024 Encounters Date Type Department Care Team Description 06/19/2024 Orders Only [facility] [address] [place] [address] Rodney Cunha MD ERRONEOUS ENCOUNTER--DISREGARD 06/11/2024 Travel from Last 3 Months Immunizations Immunization Administration Dates Next Due INFLUENZA VACCINE 01/21/2020 Family History Medical History Relation Name Comments Hypertension Father Cancer - Other Mother Diabetes - Type 2 Mother Cancer - Other Paternal Grandfather Arthritis - Rheumatoid Paternal Grandmother Relation Name Status Comments Father Mother Paternal Grandfather Paternal Grandmother Social History Tobacco Use Types Packs/Day Years Used Date Smoking Tobacco: Never Smokeless Tobacco: Never Tobacco Cessation:Counseling Given: No Alcohol Use Standard Drinks/Week Comments Never 0 (1 standard drink = 0.6 oz pur e alcohol) AUDIT-C Answer Date Recorded Q1: How often do you have a drink containing alc ohol? Never 01/15/2020 Average Number of Drinks Not on file 020 Frequency of Binge Drinking Not on file 11/2019 Comments No Sex and Gender Information Value Date Recorded Sex Assigned at Not on file Legal Sex Female 1:33 PM [employer] Gender Identity Not on file Sexual Orientation Not on file Last Filed Vital Signs Vital Sign Reading Time Taken Comments Blood Pressure 92/61 03/17/2024 3:35 PM [employer] Pulse 87 03/17/2024 3:35 PM [employer] Temperature 36.5 C (97.7 F) 03/17/2024 2:50 PM [employer] Respiratory Rate 14 03/17/2024 3:35 PM [employer] Oxygen Saturation 99% 03/17/2024 3:35 PM [employer] Inhaled Oxygen Concentration - - Weight 45.8 kg (101 lb) 03/17/2024 11:22 AM METAL MODEL BU[employer] Height 149.9 cm (4' 11 ) 03/17/2024 11:22 AM [employer]AL [employer] Body Mass Index 20.4 03/17/2024 11:22 AM [employer] Plan of Treatment Health Maintenance Due Date Last Done Comments COLOGUARD (AGES 45-75) - COLON CA SCREENING 1975 COLON MONITORING 1975 COLONOSCOPY - COLON CA SCREENING 1975 CT COLONOGRAPHY - COLON CA SCREENING 1975 Colorectal Cancer Screening 1975 FIT - COLON CA SCREENING 1975 FLEX SIG - COLON CA SCREENING 1975 PAP SMEAR 1975 HIV SCREENING 10/02/1990 HEPATITIS C SCREENING 09/28/1993 DTAP/TDAP/TD VACCINES (1 - Tdap) 10/02/1994 HEPATITIS B VACCINE (1 of 3 - 19+ 3-dose series) 10/02/1994 MAMMOGRAM 05/11/2018 05/11/2016, 04/09, 04/21/2015, Additional history exists COVID-19 VACCINE (3 - 2023- season) 2023 04/22/2021, 08/04/2020 DEPRESSION SCREENING 04/09/2024 ZOSTER VACCINE (1 of 2) 10/02/2025 INFLUENZA VACCINE Completed 12/24/2023, , 01/12/2022, Additional history exists HIB VACCINE Aged Out No longer eligi ble based on patient's age to complete this topic HPV VACCINE Aged Out No longer eligi ble based on patient's age to complete this topic MENINGOCOCCAL (Group B) VACCINE SHARED DECISION-MAKING Aged Out No longer eligible based on patient's age to complete this topic MENINGOCOCCAL GROUPS A/C/Y/W VACCINE Aged Out No longer eligible based on patient's age to complete this topic PNEUMOCOCCAL VACCINE Aged Out No long er eligible based on patient's age to complete this topic Medical Devices Implanted Type Area Account Consultant Device Identifier Shelf Expiration Date Model / Serial / Lot Gntr Nrstm 52x58.4x6.9mm Vns Aspiresr - [id number] Implanted:Qty: 1 on 02/20/2020 by Rodney Cunha MD at [facility] Left: Chest [employer] 03/19/2021 106 / [id number] / Gntr Nrstm 52x58.4x6.9mm [facility] - [id number] Implanted:Qty: 1 on 03/17/2024 by Rodney Cunha MD at [facility] Left: Chest [employer] [id number] 08/08/2025 106 / [id number] - 01 / Additional Health Concerns Infection Onset Date Last Indicated MRSA Hx 03/14/2024 03/14/[address] [place] [address] Care Teams Plant Health Care Technician Relationship Specialty Start Date End Date Alf Marie MD [address] [place] [phone] PCP - General 11/18/18
--- NOTE | 2024-08-02 13:09 | ED.GENADULT ---
HPI - General Adult General Chief complaint: Ear Stated complaint: Right Ear Pain Pt presents for right sided external ear pain. Symptom onset a few days ago. She initially thought it was related to her glasses rubbing on her ear. She denies any fever, chills, nausea or vomiting. She is not diabetic. She rates her symptoms as 8/10 in severity. With her permission her ex- tried to drain the area using a safety pin. Date of last tetanus unknown. Related Data Home Medications ?Medication ?Instructions ?Recorded ?Confirmed ?Last Taken ?Type baclofen 10 mg oral granules in 10 mg PO ONCE 08/02/24 08/02/24 Unknown History packet buspirone 15 mg tablet 10 mg PO ONCE 08/02/24 08/02/24 Unknown History carbamazepine 300 mg BYMOUTH BID 08/02/24 08/02/24 Unknown History citalopram 40 mg tablet (Celexa) 40 mg PO DAILY 08/02/24 08/02/24 Unknown History dicyclomine 20 mg tablet 20 mg PO BID 08/02/24 08/02/24 Unknown History ergocalciferol (vitamin D2) 1,250 50,000 unit PO WEEKLY 08/02/24 08/02/24 Unknown History mcg (50,000 unit) capsule (Vitamin D2) ferrous sulfate 325 mg (65 mg 325 mg PO DAILY 08/02/24 08/02/24 Unknown History iron) tablet (Feosol) hydroxyzine pamoate 25 mg capsule 25 mg PO TID 08/02/24 08/02/24 Unknown History (Vistaril) lidocaine 5 % topical cream 1 applic topical BID PRN pain 08/02/24 08/02/24 Unknown History (AneCream5) midazolam 5 mg/spray (0.1 mL) 1 spray intranasal ONCE 08/02/24 08/02/24 Unknown History nasal spray midazolam 5 mg/spray (0.1 mL) intranasal 08/02/24 Unknown History nasal spray (Nayzilam) ondansetron 8 mg disintegrating 8 mg PO Q8H 08/02/24 08/02/24 Unknown History tablet pantoprazole 20 mg tablet,delayed 20 mg PO QAM 08/02/24 08/02/24 Unknown History release polyethylene glycol 3350 17 gram 17 g PO DAILY 08/02/24 08/02/24 Unknown History oral powder packet (ClearLax) promethazine-DM 6.25 mg-15 mg/5 mL 5 ml PO Q4-6H PRN cough 08/02/24 08/02/24 Unknown History oral syrup rosuvastatin 10 mg tablet (Crestor) 10 mg PO DAILY 08/02/24 08/02/24 Unknown History sumatriptan succinate 100 mg 100 mg PO ONCE 08/02/24 08/02/24 Unknown History tablet (Imitrex) topiramate 200 mg capsule 200 mg PO BID 08/02/24 08/02/24 Unknown History sprinkle,extended release 24 hr (Qudexy XR) topiramate 200 mg capsule,extended mg PO BID 08/02/24 Unknown History release 24 hr trazodone 50 mg tablet 50 mg PO HS PRN insomnia 08/02/24 08/02/24 Unknown History zonisamide 400 mg BYMOUTH QHS PRN seizures 08/02/24 08/02/24 Unknown History Allergies Allergy/AdvReac Type Severity Reaction Status Date / Time acetaminophen (From Tylenol) Allergy Mild CHEST Verified 08/02/24 12:49 TIGHTNESS bacitracin Allergy Mild Nausea and Verified 08/02/24 12:49 Vomiting caffeine Allergy Mild Hives Verified 08/02/24 12:49 codeine Allergy Mild Hives Verified 08/02/24 12:49 cyclobenzaprine Allergy Mild Nausea Verified 08/02/24 12:49 gabapentin Allergy Mild Hives Verified 08/02/24 12:49 naproxen Allergy Mild Hives Verified 08/02/24 12:49 neomycin Allergy Mild Nausea and Verified 08/02/24 12:49 Vomiting omeprazole (From Prilosec) Allergy Mild Hives Verified 08/02/24 12:49 sulfamethoxazole (From Allergy Mild Nausea and Verified 08/02/24 12:49 Sulfamethoxazole-Trimethoprim) Vomiting trimethoprim (From Allergy Mild Nausea and Verified 08/02/24 12:49 Sulfamethoxazole-Trimethoprim) Vomiting venlafaxine (From Effexor) Allergy Mild Hives Verified 08/02/24 12:49 POLYMYXIN Allergy Mild Nausea and Uncoded 08/02/24 12:49 Vomiting Review of Systems Review of Systems: CONSTITUTIONAL: Denies fever, chills, or sweats. EYES: Denies visual changes, redness, or discharge. ENT: Reports swelling and pain to the right external ear. Denies rhinorrhea, congestion, or sore throat CARDIOVASCULAR: Denies chest pain, palpitations, or edema. RESPIRATORY: Denies cough or dyspnea. GASTROINTESTINAL: Denies abdominal pain, nausea, vomiting, or diarrhea. GENITOURINARY: Denies dysuria or hematuria. SKIN: Denies rash or itching. MUSCULOSKELETAL: Denies back pain, joint pain, or myalgia. NEUROLOGIC: Denies headache, numbness, dizziness, or weakness. PSYCHIATRIC: Denies anxiety or depression. PMFSH Past Medical History Medical History Iron deficiency GERD (gastroesophageal reflux disease) Hyperlipidemia Headache Vitamin D deficiency Depression Anxiety Developmental disability Surgical History Surgical History No pertinent past surgical history Family History Family History Mother Family history non-contributory Social History Social History Gender identity (if verbalized by the patient): Female Sexual Orientation (if Verbalized by the Patient): Straight or Heterosexual Spiritual care concerns: No Exam Narrative: GENERAL: Well-appearing, well-nourished, and in no acute distress. HEAD: Normocephalic, atraumatic. EYES: PERRLA and EOMI. ENT: Nares clear, no rhinorrhea or epistaxis. Mucous membranes moist. Oropharynx without tonsillar hypertrophy exudate or other lesions. There is swelling to right superior alejandro. Bilateral TMs pearly gaines nonbulging NECK: Supple. No adenopathy or masses. No carotid bruits or JVD CHEST: Clear to auscultation. No respiratory distress. No wheezes rales or rhonchi HEART: Regular rate and rhythm. No murmur heard. Normal peripheral pulses. ABDOMEN: Soft, nontender, nondistended, normal active bowel sounds. EXTREMITIES: Normal range of motion. No edema. SKIN: There is an area of palpable fluctuance to right superior alejandro. Warm, dry, no rash. NEURO: No focal deficits. Alert and oriented x3. PSYCH: Normal mood and affect. Course Course Emergency Course: This is a 48-year-old female who presented for evaluation of right ear pain and swelling. Her exam is consistent with perichondritis. There is an apparent fluid collection and through shared decision making opted to proceed with drainage. Wound culture was obtained. Patient tolerated procedure well. She was updated on tetanus. Will discharge with Cipro. Follow-up with primary provider. Go to the ER for worsening symptoms. Patient in agreement with plan of care. Level of Care: Express Care Visit Vital Signs Vital signs: Vital Signs Temperature 36.6 C 08/02/24 12:26 Pulse Rate 78 08/02/24 12:26 Respiratory Rate 16 08/02/24 12:26 Blood Pressure 104/74 08/02/24 12:26 Pulse Oximetry 100 08/02/24 12:26 Oxygen Delivery Room Air 08/02/24 12:26 Temperature 36.6 C 08/02/24 12:26 Pulse Rate 78 08/02/24 12:26 Respiratory Rate 16 08/02/24 12:26 Blood Pressure 104/74 08/02/24 12: Pulse Oximetry 100 08/02/24 12:26 Oxygen Delivery Room Air 08/02/24 12:26 Procedures Abscess I/D ear: Date of Incision: 08/02/24 Time of Incision: 13:49 Side (if applicable): right Local Anesthetic: none (LET) Technique: needle aspiration Amount of fluid expressed (mL): 6 Packing used?: none I&D Results: Blood Medical Decision Making Vital Signs Vital Signs: Vital Signs Temperature 36.6 C 08/02/24 12:26 Pulse Rate 78 08/02/24 12:26 Respiratory Rate 16 08/02/24 12:26 Blood Pressure 104/74 08/02/24 12:26 Pulse Oximetry 100 08/02/24 12:26 Oxygen Delivery Room Air 08/02/24 12: Temperature 36.6 C 08/02/24 12: Pulse Rate 78 08/02/24 12: Respiratory Rate 16 08/02/24 12:26 Blood Pressure 104/74 08/02/24 12: Pulse Oximetry 100 08/02/24 12:26 Oxygen Delivery Room Air 08/02/24 12:26 Discharge Plan Discharge Clinical Impression: Perichondritis Patient Disposition: Home Condition: Stable Instructions: Antibiotic Form, Cellulitis (ED) Patient Language: Mongolian Prescriptions: New ciprofloxacin HCl [Cipro] 500 mg tablet 500 mg PO Q12H Qty: 20 0RF No Action topiramate 200 mg capsule,extended release 24hr PO BID Nayzilam 5 mg/spray (0.1 mL) spray,non-aerosol INTRANASAL baclofen 10 mg granules in packet 10 mg PO ONCE buspirone 15 mg tablet 10 mg PO ONCE carbamazepine 300 mg BYMOUTH BID citalopram [Celexa] 40 mg tablet 40 mg PO DAILY dicyclomine 20 mg tablet 20 mg PO BID ergocalciferol (vitamin D2) [Vitamin D2] 1,250 mcg (50,000 unit) capsule 50,000 unit PO WEEKLY ferrous sulfate [Feosol] 325 mg (65 mg iron) tablet 325 mg PO DAILY hydroxyzine pamoate [Vistaril] 25 mg capsule 25 mg PO TID lidocaine [AneCream5] 5 % cream 1 applic topical BID PRN (Reason: pain) midazolam 5 mg/spray (0.1 mL) spray,non-aerosol 1 spray intranasal ONCE Rx Instructions: may repeat dose in other nostril after 10 minutes if inadequate response ondansetron 8 mg tablet,disintegrating 8 mg PO Q8H Rx Instructions: 1st dose 1-2 hr before radiation pantoprazole 20 mg tablet,delayed release (DR/EC) 20 mg PO QAM polyethylene glycol 3350 [ClearLax] 17 gram powder in packet 17 g PO DAILY promethazine-DM 6.25-15 mg/5 mL syrup 5 ml PO Q4-6H PRN (Reason: cough) rosuvastatin [Crestor] 10 mg tablet 10 mg PO DAILY sumatriptan succinate [Imitrex] 100 mg tablet 100 mg PO ONCE topiramate [Qudexy XR] 200 mg capsule,sprinkle,ER 24hr 200 mg PO BID trazodone 50 mg tablet 50 mg PO HS PRN (Reason: insomnia) zonisamide 400 mg BYMOUTH QHS PRN (Reason: seizures) Follow-up/Referrals: Savannah,Alf Reyes MD [Primary Care Provider] - Time of Disposition: 13:48
[2024-08-02] MEDS: LIDOCAINE, EPINEPHRINE, TETRACAINE VISCOUS SOLN 3 ML TOPICAL (13:15)
[2024-08-02] MEDS: TETANUS,DIPHTHERIA,AC PERTUSSIS ADULT (0.5 ML) BOOSTRIX IM (13:16)
== END 2024-08-02 13:55 | disposition home or self-care (01) ==
PROVIDERS: Emergency Provider Nurse Practitioner; PCP Family Medicine
DX: H61.001 Unspecified perichondritis of right external ear (principal); Z23 Encounter for immunization; E61.1 Iron deficiency; K21.9 Gastro-esophageal reflux disease without esophagitis; E78.5 Hyperlipidemia, unspecified; E55.9 Vitamin D deficiency, unspecified; F41.9 Anxiety disorder, unspecified; F32.A Depression, unspecified; F79 Unspecified intellectual disabilities
CPT/HCPCS: 10160; 87070; 87075; 87205; 90471; 90715; 99213; G0463